=== PATIENT | male | born 1935 | race Caucasian/White ===

== ENCOUNTER 2017-06-23 18:07 | Emergency (ER) | payer MEDICARE, BC ==
[2017-06-23 18:18] VITALS: BP 174/76
[2017-06-23] MEDS ORDERED: Amoxicillin/Clavulanate TAB* 875 MG PO ONE (18:47)
--- NOTE | 2017-06-24 18:13 | UC ---
Throat Pain/Nasal Red HPI - HPI Summary HPI Summary: THREE DAYS OF COUGH, SINUS CONGESTION AND LARYNGITIS. - History of Current Complaint Chief Complaint: UCGeneralIllness Stated Complaint: LARYNGITIS/CONGESTION Time Seen by Provider: 06/23/17 18:13 Hx Obtained From: Patient Onset/Duration: Gradual Onset, Lasting Days, Still Present Severity: Moderate Pain Intensity: 0 Pain Scale Used: 0-10 Numeric Cough: Nonproductive Associated Signs & Symptoms: Positive: Hoarseness - Allergies/Home Medications Allergies/Adverse Reactions: Allergies Allergy/AdvReac Type Severity Reaction Status Date / Time Propafenone [From Rythmol] AdvReac Dizziness Verified 06/23/17 18:19 dandelion resolved Allergy Eyes Uncoded 06/23/17 18:19 Itchy/Swollen/Red/Watery PMH/Surg Hx/FS Hx/Imm Hx Previously Healthy: Yes - Surgical History Surgical History: Yes Surgery Procedure, Year, and Place: 2012-Right MENISCUS REPAIR-2012 [place]. 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 kidney stone removal - Family History Known Family History: Positive: Cardiac Disease, Hypertension - Social History Occupation: Retired Lives: With Family Alcohol Use: Daily Alcohol Amount: 2 Martini drinks daily Substance Use Type: None Smoking Status (MU): Former Smoker When Did the Patient Quit Smoking/Using Tobacco: 20+ years ago - Immunization History Most Recent Tetanus Shot: UNKNOWN Review of Systems Constitutional: Negative Skin: Negative Eyes: Negative ENT: Sore Throat, Sinus Congestion Respiratory: Cough Cardiovascular: Negative Gastrointestinal: Negative Genitourinary: Negative Motor: Negative Neurovascular: Negative Musculoskeletal: Negative Neurological: Negative Psychological: Negative All Other Systems Reviewed And Are Negative: Yes Physical Exam Triage Information Reviewed: Yes Appearance: Well-Appearing, No Pain Distress, Well-Nourished Vital Signs: Initial Vital Signs Temp 99.8 F 06/23/17 18:10 Pulse 80 06/23/17 18:10 Resp 20 06/23/17 18:10 BP 174/76 06/23/17 18:10 Pulse Ox 94 06/23/17 18:10 Vital Signs Reviewed: Yes Eye Exam: Normal ENT: Positive: Pharyngeal erythema, TM dull Dental Exam: Normal Neck: Positive: Supple, Nontender, No Lymphadenopathy Respiratory Exam: Other - COUGH Respiratory: Positive: Chest non-tender, Lungs clear, Normal breath sounds, No respiratory distress Cardiovascular Exam: Normal Cardiovascular: Positive: RRR, Brisk Capillary Refill Abdominal Exam: Normal Musculoskeletal Exam: Normal Neurological Exam: Normal Psychological Exam: Normal Skin Exam: Normal Throat Pain/Nasal Course/Dx - Differential Dx/Diagnosis Differential Diagnosis/HQI/PQRI: Laryngitis, Pharyngitis, Sinusitis, URI Provider Diagnoses: SINUSITIS; LARYNGITIS Discharge - Discharge Plan Condition: Stable Disposition: HOME Prescriptions: Amoxicillin/Clavulanate TAB* [Augmentin TAB 875*] 875 mg PO BID #20 tab Benzonatate CAP* [Tessalon 100 MG CAP*] 100 mg PO TID PRN #15 cap PRN Reason: Cough Patient Education Materials: Sinusitis (ED), Laryngitis (ED), Acute Cough (ED) Referrals: Zohreh Maharaj MD [Primary Care Provider] -
== END 2017-06-23 18:58 | disposition home or self-care (01) ==
LOC: UCCORT 18:07
DX: J32.9 Chronic sinusitis, unspecified (principal); J04.0 Acute laryngitis; Z87.891 Personal history of nicotine dependence; Z88.8 Allergy status to other drugs, medicaments and biological substances; Z85.46 Personal history of malignant neoplasm of prostate; Z85.51 Personal history of malignant neoplasm of bladder
CPT/HCPCS: 99211; A9270-GY; G0463

== ENCOUNTER 2018-01-09 00:28 | Observation (INO) | payer MEDICARE, BC ==
[2018-01-09] MEDS ORDERED: Morphine INJ* 4 MG/ML 1 ML CARPUJECT IV ONE (01:25)
[2018-01-09] MEDS ORDERED: Ondansetron INJ* 2 MG/ML VIAL IV ONE (01:25)
[2018-01-09] MEDS ORDERED: Morphine INJ* 2 MG/ML 1 ML CARPUJECT ONE (01:45)
[2018-01-09] MEDS ORDERED: Morphine INJ* 2 MG/ML 1 ML CARPUJECT IV ONE (01:48)
[2018-01-09 01:53] LABS: ABS Basophils 0 10^3/ul (0-0.2); ABS Eosinophils 0.1 10^3/ul (0-0.6); ABS Lymphocytes 0.4 10^3/ul (1.0-4.8); ABS Monocytes 0.8 10^3/ul (0-0.8); ABS Nucleated RBC 0 10^3/ul; Eosinophil % 1.4 % (0-6); Hematocrit 46 % (42-52); Hemoglobin 15.1 g/dl (14.0-18.0); Lymphocyte % 3.9 % (25-47); Mean Corpuscular HGB Conc 33 g/dl (31-36); Mean Corpuscular Hemoglobin 32 pg (27-31); Mean Corpuscular Volume 96 fL (80-94); Mean Platelet Volume 10 um3 (7.4-10.4); Nucleated Red Blood Cells % 0; Platelet Count 162 10^3/ul (150-450); Red Blood Count 4.74 10^6/ul (4.0-5.4); Red Cell Distribution Width 14 % (10.5-15); White Blood Count 9.3 10^3/ul (3.5-10.8)
[2018-01-09] MEDS ORDERED: Aspirin Low Dose CHEW TAB* 81 MG PO ONE (01:59)
[2018-01-09 02:04] LABS: EGFR Non-African American 78.8 (>60)
[2018-01-09 02:05] LABS: INR 2.4 (0.77-1.02)
[2018-01-09] MEDS ORDERED: Docusate CAP* 100 MG PO PRN (03:57)
[2018-01-09] MEDS ORDERED: Ondansetron INJ* 2 MG/ML VIAL IV PRN (03:57)
[2018-01-09] MEDS ORDERED: Senna TAB PO PRN (03:57)
[2018-01-09] MEDS ORDERED: Al Hydrox/Mg Hydrox/Simet LIQ* 30 ML UDC PO PRN (03:57)
[2018-01-09] MEDS ORDERED: Acetaminophen TAB* 325 MG PO PRN (03:57)
[2018-01-09] MEDS ORDERED: Morphine INJ* 2 MG/ML 1 ML CARPUJECT IV PRN (03:57)
--- NOTE | 2018-01-09 08:06 | RAD ---
HISTORY: Chest pain COMPARISONS: June 13, 2017 VIEWS: 1: frontal portable view of the chest at 2:00 AM FINDINGS: LINES AND TUBES: None. CARDIOMEDIASTINAL SILHOUETTE: The cardiac silhouette is enlarged. The cardiomediastinal silhouette is otherwise normal for portable technique. PLEURA: The costophrenic angles are sharp. No pleural abnormalities are noted. LUNG PARENCHYMA: The lungs are clear. ABDOMEN: The upper abdomen is clear. There is no subphrenic gas. BONES AND SOFT TISSUES: No bone or soft tissue abnormalities are noted. IMPRESSION: CARDIOMEGALY.
[2018-01-09] MEDS ORDERED: Timolol 0.25% OPHTH.SOLN* BTL BOTH EYES SCH (09:00)
[2018-01-09] MEDS ORDERED: Aspirin EC Low Dose* 81 MG TAB.EC PO SCH (09:00)
[2018-01-09] MEDS ORDERED: Lisinopril TAB* 10 MG PO SCH (09:00)
[2018-01-09] MEDS ORDERED: Potassium Chlor TAB* 20 MEQ TAB.ER PO SCH (09:00)
[2018-01-09] MEDS ORDERED: Furosemide TAB* 20 MG PO SCH (09:00)
[2018-01-09] MEDS ORDERED: Regadenoson* 0.4 MG/5 ML SYRINGE ONE (12:23)
--- NOTE | 2018-01-09 13:44 | RAD ---
Edited for charges. INDICATION: Chest pain COMPARISON: None TECHNIQUE: SPECT imaging was performed. Rest images were acquired following the intravenous injection of 10 millicuries of technetium 99m tetrofosmin at 1057 hours. At 1227 hours stress images were acquired following the intravenous administration of 25.38 millicuries of technetium 99m tetrofosmin. The patient received intravenous Lexiscan prior to the stress image acquisition. CT attenuation correction was not possible as the patient could not elevate arms above his head. FINDINGS: There are no defects of the stress-induced or fixed nature. The cardiac chamber size is normal. There are no wall motion abnormalities. The ejection fraction is calculated at 68% during stress. IMPRESSION: No scintigraphic evidence of ischemia or infarction. ASSESSMENT: HIGH-RISK, INTERMEDIATE-RISK, OR LOW-RISK Based on imaging criteria from ACC/AHA 2002 Guideline Update for the Management of Patients With Chronic Stable Angina Table 23. Noninvasive Risk Stratification. MTDD
--- NOTE | 2018-01-09 14:16 | HP ---
CC: Zohrhe Maharaj MD. HISTORY AND PHYSICAL: DATE OF ADMISSION: 01/09/18 TIME OF EVALUATION: 0400 PRIMARY CARE PHYSICIAN: Zohreh Maharaj MD. CHIEF COMPLAINT: Chest pain. HISTORY OF PRESENT ILLNESS: This is an 82-year-old male with past medical history of atrial fibrilla tion, on Coumadin; hypertension, who presents to the emergency room with substernal epigastric pleuri tic pain. The patient states the symptoms began yesterday morning and has not unproved. He states 2 days prior to this, he has had congestion, postnasal drip with a mild cough. No associated shortnes s of breath. No nausea, no diaphoresis. He has an O2 sat at home, and it has been greater than 90. He has had COPD, but he has no inhalers and no inhaler use. He denies any change in his diet. No i ncrease in burping. He was shoveling a few days ago, when the snow storm hit. Otherwise, no exertio nal activity. No recent weight changes, no fevers, no recent changes in his medications. The gee t states he had a stress test here every year, but was not able to find that documentation other than one from 2008. Otherwise, remainder of review of systems negative. In the emergency room, the ashley ent had labs, imaging. He was given 4 mg of morphine, Zofran, aspirin, and was referred to the [facility] for further evaluation. PAST MEDICAL HISTORY: 1. Atrial fibrillation, on anticoagulation. 2. Hypertension. 3. COPD, on room air. 4. History of bladder cancer, status post surgery in 2008. 5. Prostate cancer, status post surgery in 1998. 6. History of nephrolithiasis. 7. History of right knee surgery. MEDICATIONS: 1. Multivitamin p.o. daily. 2. Simvastatin 20 mg p.o. daily. 3. Timolol maleate 0.25% one drop to each eye b.i.d. for glaucoma. 4. Pilocarpine 0.5% one drop in both eyes once per month. 5. Lisinopril 20 mg p.o. daily. 6. Warfarin 2.5 mg Monday, , and Monday; 1.25 mg on Monday, Monday, Monday, Monday. 7. Potassium chloride 20 mEq p.o. daily. 8. Lasix 20 mg p.o. daily. ALLERGIES: PROPAFENONE, dizziness; DANDELION. FAMILY HISTORY: Mother at age 73 from old age. Father at age 97 from emphysema. SOCIAL HISTORY: The patient states he recently relocated from [place]. He lives at home with his wi fe who is his healthcare proxy. He quit smoking 25 years ago, at that time he smoked 1 to 2 packs pe r day for 25 years. He has 1 martini vodka in the evening time. Code status discussed, he is not wick re, will remain full code until he follows up with his primary to discuss further. REVIEW OF SYSTEMS: A 14-point review of systems as mentioned in the HPI, otherwise negative. PHYSICAL EXAMINATION GENERAL: No acute distress, resting comfortably. VITAL SIGNS: Temp 98.3, pulse rate 87, respiratory rate 14, oxygen saturation 93% on 2 L, blood pres sure 115/60. HEENT: Head: Normocephalic. Pupils are equal and reactive. Anicteric. Oropharynx, mucous membrane s moist. NECK: Supple. No lymphadenopathy. RESPIRATORY: Diminished breath sounds. No wheezing, rhonchi, or rales. CARDIAC: Irregularly irregular rate and rhythm. ABDOMEN: Soft, nontender, nondistended. EXTREMITIES: The patient with multiple lower extremity varicosities. Distant pulses. No edema. NEUROLOGIC: Alert and oriented x3. No focal neurologic deficits. DIAGNOSTIC STUDIES/LAB DATA: White count 9.3, hemoglobin 15.1, hematocrit 46, platelets 162. INR 2 .4. Sodium 134, potassium 4.2, chloride 99, bicarb 29, BUN 19, creatinine 0.92, glucose 151. Tropon in 0.01. Radiographic data: Chest x-ray, no acute findings on wet read. EKG showed atrial fibrillation with a rate of 98. ASSESSMENT AND PLAN: This is an 82-year-old male with past medical history of atrial fibrillation, o n Coumadin; hypertension, who presents to the emergency room with pleuritic pain. 1. Pleuritic pain. Assessment: The patient's initial workup is unremarkable. It is in the setting of congestion, could be costochondritis, or related to a viral syndrome. He does have risk factors. It was unreasonable to rule him out for acute coronary syndrome. Plan: We will trend his troponin . Check a lipid panel. Place him on a baby aspirin. Order a nuclear stress test. 2. Chronic medical problems: Atrial fibrillation. Assessment: He is anticoagulated. He is not on any medications for rate control. We would recommend starting him on a beta-matilda after his stres s test. 3. Hypertension. Continue his home regimen. 4. FEN. We will keep the patient n.p.o. 5. DVT prophylaxis. The patient is moderate risk. He is on Coumadin. 6. Code status, full code. Recommend followup with his primary care physician regarding this. PATIENT TIME: Greater than 45 minutes spent doing the history and physical, more than half time spen t in direct patient contact. [id number]/CPS #: [id number]
--- NOTE | 2018-01-09 15:34 | RAD ---
HISTORY: Lower extremity edema COMPARISONS: None relevant TECHNIQUE: Multiple transverse and longitudinal ultrasound images were obtained of the bilateral lower extremities from the level of the common femoral vein inferiorly through to the infrapopliteal veins using grayscale, color Doppler, and spectral Doppler imaging with and without compression and with augmentation. FINDINGS: VEINS: The venous system of the bilateral lower extremities is compressible throughout its course, with normal flow on color Doppler imaging and normal response to augmentation on spectral Doppler imaging. SOFT TISSUES: Unremarkable. OTHER FINDINGS: None. IMPRESSION: NO RIGHT LOWER EXTREMITY DEEP VEIN THROMBOSIS. NO LEFT LOWER EXTREMITY DEEP VEIN THROMBOSIS
[2018-01-09 16:32] VITALS: BP 100/54
[2018-01-09] MEDS ORDERED: Warfarin TAB(*) 2.5 MG PO SCH (17:00)
[2018-01-09] MEDS ORDERED: Prenatal Vitamin TAB PO SCH (18:00)
[2018-01-10] MEDS ORDERED: Warfarin TAB(*) 2.5 MG PO SCH (17:00)
--- NOTE | 2018-01-10 20:31 | DS ---
CC: Ruthy Payan MD * DISCHARGE SUMMARY: DATE OF ADMISSION: 01/09/18 DATE OF DISCHARGE: 01/09/18 ADMITTING PROVIDER: Kaci Saunders MD ATTENDING PHYSICIAN: Alvaro Cornejo MD PRIMARY CARE PROVIDER: Zohreh Maharaj MD CHIEF COMPLAINT: Pleuritic sharp chest pain. PRINCIPAL DIAGNOSIS: Acute coronary artery syndrome ruled out; pleuritic chest pain likely secondary to viral illness. HISTORY OF PRESENT ILLNESS AND HOSPITAL COURSE: Emanuel Galdamez is an 82- year- old male with past medical history of atrial fibrillation, on Coumadin; hypertension; COPD, on 2 L of oxygen at night; bladder cancer, status post surgery in 2008; prostate cancer, status post surgery in 1998; history of nephrolithiasis who presented with upper substernal pleuritic pain radiating to his upper back. Two days prior to admission, he had some congestion, postnasal drip, mild cough, fevers and chills. No associated shortness of breath. His O2 saturation has been greater than 98% at home when he measured it. Despite his chronic hypoxic nocturnal respiratory failure, he is on no inhalers. He was shoveling snow a few days prior to admission, otherwise no exertional activity, weight changes. He was admitted for ACS rule out. His initial chest x-ray showed no acute findings. His initial troponin was 0.01. It increased to 0.04, then 0.05, and down to 0.04 again. He had a nuclear stress test, which showed no evidence of ischemia or infarction. He had complaints of chronic right lower extremity edema and a duplex ultrasound bilaterally did not show any evidence of DVT. His physical exam was more consistent with varicose veins, worse on the right leg. Of note, his INR was in the therapeutic range, 2.4. He had a LDL of 74, HDL of 50, BNP of 163. ACS having been ruled out and likely this is pleuritic pain secondary to his upper respiratory infections in recent days and possible viral insult. The patient was considered stable for discharge with further followup with Dr. Maharaj. DISCHARGE MEDICATIONS: Include: 1. Acetaminophen 650 mg p.o. q.4 hours (new). 2. Docusate 100 mg p.o. b.i.d. (new). 3. Lasix 20 mg p.o. daily. 4. Lisinopril 20 mg p.o. daily. 5. Multivitamin 1 tab p.o. daily. 6. Pilocarpine 0.5% ophthalmic solution 1 drop monthly. 9. Potassium chloride tablet 20 mEq p.o. daily. 10. Senna tab 1 tab p.o. b.i.d. p.r.n. (new). 11. Simvastatin 20 mg p.o. q.a.m. 12. Timolol 0.25% ophthalmic solution 1 drop both eyes b.i.d. 13. Tramadol 25 mg p.o. q.6 hours p.r.n. (new). 14. Warfarin 1.25 mg Monday, Monday, Monday, Monday and 2.5 mg Monday, , Monday. DISCHARGE DIET: Heart healthy. ACTIVITY LEVEL: No restrictions. FOLLOWUP: Please follow up with Dr. Zohreh Maharaj within 5 days of discharge. TIME SPENT: On discharge 35 minutes. [id number]/CPS #: [id number] MTDD
== END 2018-01-09 17:50 | disposition home or self-care (01) ==
LOC: ED 00:28 → MEDTELE 03:57
PROVIDERS: ADMIT Pediatrics; ATTEND Internal Medicine
DX: R07.89 Other chest pain (principal); B34.9 Viral infection, unspecified; Z86.79 Personal history of other diseases of the circulatory system; Z79.01 Long term (current) use of anticoagulants; Z87.09 Personal history of other diseases of the respiratory system; Z85.51 Personal history of malignant neoplasm of bladder; Z85.46 Personal history of malignant neoplasm of prostate; Z87.442 Personal history of urinary calculi; Z98.890 Other specified postprocedural states; I51.7 Cardiomegaly
CPT/HCPCS: 36415; 71045; 78452; 80053; 80061; 83735; 83880; 84484; 85025; 85610; 85730; 93005; 93017; 93970; 96374; 96375; 96376; 99284; A9270-GY; A9502; G0378; J2270; J2405; J2785

== ENCOUNTER 2018-06-07 11:16 | Emergency (ER) | payer MEDICARE, BC ==
[2018-06-07 11:57] VITALS: BP 139/67
--- NOTE | 2018-06-07 12:21 | ED ---
Lower Extremity - History of Current Complaint Chief Complaint: UCLowerExtremity Stated Complaint: RIGHT LEG COMPLAINT Time Seen by Provider: 06/07/18 12:11 Hx Obtained From: Patient Mechanism Of Injury: Unknown Onset/Duration: Days Severity Initially: Mild Severity Currently: Mild Pain Intensity: 0 Associated Signs And Symptoms: Positive: Negative Aggravating Factor(s): Nothing Alleviating Factor(s): Nothing - Allergies/Home Medications Allergies/Adverse Reactions: Allergies Allergy/AdvReac Type Severity Reaction Status Date / Time propafenone Allergy Dizziness Verified 01/09/18 03:18 dandelion resolved Allergy Eyes Uncoded 06/23/17 18:19 Itchy/Swollen/Red/Watery Home Medications: Home Medications Oxygen Machine At Night No. 2 06/07/18 [History] Simvastatin 20 mg PO QAM 06/07/18 [History Confirmed 06/07/18] PMH/Surg Hx/FS Hx/Imm Hx Endocrine/Hematology History: Denies: Hx Diabetes Cardiovascular History: Reports: Hx Angina, Hx Coronary Artery Disease - HIGH CHOLESTEROL, Hx Peripheral Vascular Disease - MILD PER ALBA NOTE Denies: Other Cardiovascular Problems/Disorders Comment Only: Hx Hypertension - CONTROLED BY MEDS Respiratory History: Reports: Hx Chronic Obstructive Pulmonary Disease (COPD) Denies: Hx Asthma History: Reports: Hx Kidney Stones, Other Problems/Disorders - DX BLADDER CA 2008 Musculoskeletal History: Reports: Hx Arthritis - RIGHT KNEE Sensory History: Reports: Hx Cataracts, Hx Contacts or Glasses - READING, Hx Glaucoma - BILATERAL, Hx Hearing Aid - LEFT EAR, Hx Hearing Problem Opthamlomology History: Reports: Hx Cataracts, Hx Contacts or Glasses - READING , Hx Glaucoma - BILATERAL - Cancer History Cancer Type, Location and Year: BLADDER 1998. PROSTATE. [place] - Surgical History Surgery Procedure, Year, and Place: 2012-Right MENISCUS REPAIR-2012 [place]. 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 kidney stone removal Hx Anesthesia Reactions: No Infectious Disease History: No Infectious Disease History: Reports: Hx Shingles Denies: Traveled Outside the [place] in Last 30 Days - Family History Known Family History: Positive: Cardiac Disease, Hypertension - Social History Alcohol Use: Daily Alcohol Amount: 1-1 1/8 Martini drinks daily Substance Use Type: Reports: None Smoking Status (MU): Former Smoker Review of Systems Constitutional: Negative Eyes: Negative ENT: Negative Cardiovascular: Other - dyspnea with exertion Positive: Shortness Of Breath - unchanged Gastrointestinal: Negative Genitourinary: Negative Skin: Other - small laceration right lower leg Neurological: Negative Psychological: Normal All Other Systems Reviewed And Are Negative: Yes Physical Exam Triage Information Reviewed: Yes Vital Signs On Initial Exam: Initial Vitals Temp Pulse Resp BP Pulse Ox 36.4 C 56 18 139/67 96 06/07/18 11:45 06/07/18 11:45 06/07/18 11:45 06/07/18 11:45 06/07/18 11:45 Vital Signs Reviewed: Yes Appearance: Positive: Well-Appearing Skin: Positive: Warm - small laceration right posterior leg, Other - small laceration of the right posterior calf without surrounding erythema or pain Head/Face: Positive: Normal Head/Face Inspection Eyes: Positive: Normal ENT: Positive: Normal ENT inspection Neck: Positive: Supple Respiratory/Lung Sounds: Positive: Clear to Auscultation Cardiovascular: Positive: Other - irregularly irregular Abdomen Description: Positive: Nontender Bowel Sounds: Positive: Present Musculoskeletal: Positive: Edema Left - bilateral varicosities noted, Edema Right Diagnostics - Vital Signs Vital Signs Temp Pulse Resp BP Pulse Ox 06/07/18 11:45 36.4 C 56 18 139/67 96 - Laboratory Lab Statement: Any lab studies that have been ordered have been reviewed, and results considered in the medical decision making process. Lower Extremity Course/Dx - Diagnoses Provider Diagnoses: Laceration of leg Discharge - Sign-Out/Discharge Documenting (check all that apply): Patient Departure - Discharge Plan Condition: Good Disposition: HOME Patient Education Materials: Laceration (ED), Chronic Wound Care (ED) Referrals: Zohreh Mahaarj MD [Primary Care Provider] - - Billing Disposition and Condition Condition: GOOD Disposition: Home
== END 2018-06-07 12:39 | disposition home or self-care (01) ==
LOC: UCCORT 11:16
DX: S81.811A Laceration without foreign body, right lower leg, initial encounter (principal); X58.XXXA Exposure to other specified factors, initial encounter; Y93.9 Activity, unspecified; Y92.9 Unspecified place or not applicable; Z88.8 Allergy status to other drugs, medicaments and biological substances; E78.00 Pure hypercholesterolemia, unspecified; Z87.891 Personal history of nicotine dependence
CPT/HCPCS: 99211; G0463

== ENCOUNTER 2018-07-11 07:34 | Observation (INO) | payer MEDICARE, BC ==
[2018-07-11] MEDS ORDERED: ceFAZolin 2 GM PREMIX (*) 2 GM/50 ML BAG IVPB ONE (08:00)
[2018-07-11] MEDS ORDERED: Lidocaine 1%* 5 ML VIAL ONE (08:34)
[2018-07-11] MEDS ORDERED: Iohexol 300* (CONTRAST) 10 ML SDV ONE (08:34)
[2018-07-11] MEDS ORDERED: fentaNYL* 50 MCG/ML 2 ML VIAL (100 MCG VIAL) ONE (08:34)
[2018-07-11] MEDS ORDERED: Midazolam* 1 MG/ML 5 ML VIAL (5 MG) ONE ×2 (08:34→10:31)
[2018-07-11] MEDS ORDERED: Diazepam TAB(*) 5 MG ONE (08:40)
[2018-07-11] MEDS ORDERED: Furosemide IV* 10 MG/ML VIAL (40 MG) ONE (10:55)
[2018-07-11] MEDS ORDERED: oxyCODONE/Acetamin 5/325 MG* TAB PO PRN (11:37)
[2018-07-11] MEDS ORDERED: Acetaminophen TAB* 325 MG PO PRN (11:37)
[2018-07-11] MEDS: Potassium Chlor TAB* 20 MEQ TAB.ER PO SCH (12:34)
[2018-07-11] MEDS: Furosemide TAB* 20 MG PO SCH (12:34)
--- NOTE | 2018-07-11 15:01 | RAD ---
INDICATION: Device implant COMPARISON: January 09, 2018 TECHNIQUE: An AP portable view obtained at 1420 hours is submitted. FINDINGS: Bones/Soft Tissues: There are no acute bony findings. There is recent left-sided cardiac pacemaker placement Cardiomediastinal: The cardiomediastinal silhouette is normal. Lungs: There are no infiltrates. There is no pneumothorax. Pleura: There are no pleural effusions. Other: None IMPRESSION: LEFT CARDIAC PACEMAKER PLACEMENT. NO PNEUMOTHORAX.
[2018-07-11] MEDS: ceFAZolin 1 GM VIAL(*) 1 GM in NS 0.9% 50 ML* 50 ML IVPB SCH ×2 (16:25→23:50)
[2018-07-11] MEDS: Timolol 0.25% OPHTH.SOLN* BTL BOTH EYES SCH (20:45)
[2018-07-12 06:42] LABS: EGFR Non-African American 83.8 (>60)
[2018-07-12] MEDS: ceFAZolin 1 GM VIAL(*) 1 GM in NS 0.9% 50 ML* 50 ML IVPB SCH (07:44)
[2018-07-12] MEDS ORDERED: Atorvastatin* 10 MG TAB PO SCH (09:00)
[2018-07-12] MEDS ORDERED: Lisinopril TAB* 10 MG PO SCH (09:00)
[2018-07-12] MEDS: Timolol 0.25% OPHTH.SOLN* BTL BOTH EYES SCH (09:21)
[2018-07-12] MEDS: Furosemide TAB* 20 MG PO SCH (09:22)
[2018-07-12] MEDS: Potassium Chlor TAB* 20 MEQ TAB.ER PO SCH (09:22)
--- NOTE | 2018-07-12 10:28 | RAD ---
INDICATION: Device implant COMPARISON: July 11, 2018 TECHNIQUE: PA and lateral dual-energy views were obtained. FINDINGS: Bones/Soft Tissues: There are no acute bony findings. There is recent left-sided cardiac pacemaker placement. The appearance unchanged Cardiomediastinal: The cardiac silhouette is mildly prominent. Lungs: There are no infiltrates. There is no pneumothorax. Pleura: There are no pleural effusions. Other: None IMPRESSION: RECENT PLACEMENT OF LEFT-SIDED CARDIAC PACEMAKER. LUNGS CLEAR
[2018-07-12 12:08] VITALS: BP 156/71
--- NOTE | 2018-07-12 14:00 | OP ---
CC: Dr. Zohreh Maharaj; Dr. Olivier Mcdonnell* OPERATIVE REPORT: DATE OF OPERATION: 07/11/18 - Inpatient, room 434-01 DATE OF : 35 SURGEON: Ruthy Payan MD PRE-OP DIAGNOSIS: Atrial fibrillation with bradycardia and PVCs. POST-OP DIAGNOSIS: Atrial fibrillation with bradycardia and PVCs. OPERATIVE PROCEDURE: Single-chamber pacemaker implantation. ESTIMATED BLOOD LOSS: Less than 10 cc. COMPLICATIONS: None. DESCRIPTION OF PROCEDURE: The indications, risks, and benefits of the procedure were discussed with the patient in the presence of his and they were amenable to proceeding. The patient had held his Coumadin for 5 days prior to the procedure and held his Lasix the morning of the procedure, but taken other meds. The patient is right-handed and the left subclavian fossa was prepped and draped in the usual sterile fashion. Throughout the procedure, the patient received a total of 7 mg of Versed and 50 mcg of fentanyl. The patient received 20 cc of 1% lidocaine for local anesthesia. Following the timeout, 10 cc of radiopaque dye was injected into the left upper extremity outlining the left axillary and left subclavian vein. Following the local anesthesia, using a 10 blade knife, a 2.5 cm incision was made in the left subclavian fossa, and using Bovie and blunt dissection, it was extended to the level of the pectoralis muscle. Additional lidocaine was infused inferiorly and medially, and using blunt dissection, a small pocket was fashioned. Using a modified Seldinger technique, the left subclavian vein was cannulated and a guidewire inserted. Using an introducer technique, the right ventricular lead was guided into the right ventricular apex and actively fixed in place. The patient had had significant bleeding at the site of the incision, but not with the pocket. Direct pressure was placed as well and the lead was sutured to the pocket using 0 silk suture and followed by irrigation. Bleeding had stopped , but I did take a third incision to wider with tissue to wrap around the lead as it came out of the vein to minimize future bleeding. The pocket was then again copiously irrigated. Pacing and sensing thresholds again checked. The lead was attached to the device and the device was placed in the pocket. The incision was closed with 2 layers of resorbable followed by carmelo and an external dressing. FINDINGS: The system is an MRI compatible ST. Bo system. The RV lead is a [employer]onic model [id number], serial #[id number]. R waves were sensed at 7.1 millivolts with a ventricular lead impedance of 685 ohms, and the ventricular pacing threshold of 0.5 volts at 0.4 milliseconds. The generator is the [employer] model [id number], serial #[id number]. Leaving the Transit Bus Operator, he was programmed in VVI mode at the rate of 60 beats a minute. The patient had a transient drop in oxygen saturation, which responded to nasal cannula and repositioning of the airway. He was hypertensive on arrival to the pacer lab with some improvement with anesthesia, but during the case, received 10 mg of Lasix for diuresis for a combination of back bleeding and hypertension. There are otherwise no complications and on transfer to the floor, the patient' s systolic blood pressure is in the 130s, oxygen saturation is approximately 94 % on 2 L nasal cannula. [id number]/[facility] #: [id number] [facility]
--- NOTE | 2018-07-12 21:24 | DS ---
CC: Dr. Zohreh Maharaj* DISCHARGE SUMMARY: DATE OF ADMISSION: 07/11/2018. DATE OF DISCHARGE: 07/12/2018. HISTORY OF PRESENT ILLNESS AND HOSPITAL COURSE: Mr. Galdamez is an 83-year- old gentleman with longstanding chronic atrial fibrillation. Recently, he was noted to have frequent PVCs, 26% of total and ventricular bigeminy. He also had evidence of bradycardia with rate as well as 36 beats a minute with atrial fibrillation. The decision was made to implant a single chamber pacemaker in order to add additional rate lowering agents, beta-blockers for his PVCs. The patient underwent single chamber pacemaker implantation yesterday 07/11/[address] MRI compatible [employer] system. His blood pressure was high on arrival with Lasix held but responded well to resumption of Lasix. Overnight, the patient felt well. He feels his breathing has improved since implantation of the device (although it should be noted he received both his usual oral 20 mg of Lasix and 10 mg of Lasix IV push yesterday). It is possible that extra diuretics lead to improved breathing. The patient denies any pain, shortness of breath, orthopnea, PND, or dizziness. PAST MEDICAL HISTORY: The patient has a past medical history of: 1. Chronic atrial fibrillation. 2. Hypertension. 3. Patent foramen ovale. 4. Thoracic aneurysm. 5. COPD. 6. Diminished diffusion capacity. 7. Prostate disease (Husseini). 8. Bladder lesions. 9. Lung nodule. SOCIAL HISTORY: The patient is , lives with his supportive . Stopped smoking in 1988. Drinks a bit of vodka daily and caffeine daily. He is active, exercising regularly. FAMILY HISTORY: Significant for cancer. Three siblings from cancer. His mother of pancreatic cancer. His father at age 78 related to a vein closing up, history unclear. PHYSICAL EXAMINATION: On the day of discharge, the patient a fit appearing elderly gentleman, walking around the floors, in no acute distress. Incision in the left subclavian fossa is well healed and no evidence of active bleeding or infection and no hematoma or ecchymosis in the pocket. Breath sounds were clear in all flowers. Coronary: S1, S2, regular. LABORATORY DATA: Sodium 141, potassium 3.9, chloride 103, bicarb 33, BUN 20, creatinine 0.87, glucose 108. Monitor shows atrial fibrillation, intermittent ventricular pacing and PVCs. Chest x-ray yesterday and today showed good lead placements and no pneumothorax and no pulmonary infiltrates. Device interrogation today confirmed he has a [employer] MRI compatible system. The ventricle lead impedance is 550 ohms, R waves are sensed at 9.6 millivolts with ventricular pacing threshold of 0.5 volts at 0.4 milliseconds. MEDICATIONS AT THE TIME OF DISCHARGE: Include new addition of Keflex 500 mg t.i.d. for 4 days and he is to continue his home medications of: 1. Lipitor 10 mg a day. 2. Lasix 20 mg a day. 3. Prinivil 20 mg a day. 4. Pilocarpine ophthalmic drops. 5. Potassium 20 mEq a day. 6. Timolol ophthalmic drops. We will plan on adding metoprolol with his wound check next week. He is resuming his Coumadin as well. The patient was provided with oral and written instructions for care of his device and we will see him in 1 week's time for wound check and he knows to call pLatisharsamir [id number]/[facility] #: [id number] PEDRO
[2018-07-28] MEDS ORDERED: Pilocarpine 1% OPTH.SOL* 15 ML BTL BOTH EYES SCH (12:00)
== END 2018-07-12 12:30 | disposition home or self-care (01) ==
LOC: CHICATH 07:34 → MEDTELE 11:37
PROVIDERS: ADMIT Specialist; ATTEND Specialist
DX: I48.2 Chronic atrial fibrillation (principal); I49.3 Ventricular premature depolarization; I10 Essential (primary) hypertension; I71.4 Abdominal aortic aneurysm, without rupture; Q21.1 Atrial septal defect; J44.9 Chronic obstructive pulmonary disease, unspecified; N42.9 Disorder of prostate, unspecified; M26.609 Unspecified temporomandibular joint disorder, unspecified side; I83.90 Asymptomatic varicose veins of unspecified lower extremity; Z85.46 Personal history of malignant neoplasm of prostate; N20.0 Calculus of kidney
CPT/HCPCS: 33207; 36415; 71045; 71046; 80048; 93005; 96365; 99156; 99157; A9270-GY; C1786; C1898; G0378; J0690; J1940; J2250; J3010

== ENCOUNTER 2018-11-16 08:06 | Emergency (ER) | payer MEDICARE, BC ==
[2018-11-16 08:25] VITALS: BP 155/77
--- NOTE | 2018-11-16 08:34 | UC ---
Throat Pain/Nasal Red HPI - HPI Summary HPI Summary: sore throat x 1 day nasal congestion , pnd no fever, no chills, no cough - History of Current Complaint Chief Complaint: UCGeneralIllness Stated Complaint: SORE THROAT Time Seen by Provider: 11/16/18 08:20 Hx Obtained From: Patient Onset/Duration: Gradual Onset, Lasting Days - 1, Still Present Severity: Moderate Pain Intensity: 2 Cough: None Associated Signs & Symptoms: Positive: Nasal Discharge. Negative: Dysphagia, FB Sensation, Drooling, Wheezing, Hoarseness, Sinus Discomfort, Fever, Vomiting , Rash - Allergies/Home Medications Allergies/Adverse Reactions: Allergies Allergy/AdvReac Type Severity Reaction Status Date / Time propafenone Allergy Dizziness Verified 11/16/18 08:19 PMH/Surg Hx/FS Hx/Imm Hx - Additional Past Medical History Additional PMH: Dyslipidemia, Fluid Retention, Glaucoma Cardiovascular History: Atrial Fibrillation Respiratory History: COPD - Surgical History Surgical History: Yes Surgery Procedure, Year, and Place: 2012-Right MENISCUS REPAIR-2012 [place]. 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 kidney stone removal - Family History Known Family History: Positive: Cardiac Disease, Hypertension - Social History Alcohol Use: Daily Alcohol Amount: Martini Substance Use Type: None Smoking Status (MU): Former Smoker Length of Time of Smoking/Using Tobacco: 1-2 PPD x 25 Years Have You Smoked in the Last Year: No When Did the Patient Quit Smoking/Using Tobacco: 1984 - Immunization History Most Recent Tetanus Shot: UNKNOWN Review of Systems All Other Systems Reviewed And Are Negative: Yes Constitutional: Positive: Negative Skin: Positive: Negative Eyes: Positive: Negative ENT: Positive: Sore Throat, Nasal Discharge Respiratory: Positive: Negative Cardiovascular: Positive: Negative Is Patient Immunocompromised?: No Physical Exam Triage Information Reviewed: Yes Appearance: Well-Appearing, No Pain Distress, Well-Nourished Vital Signs: Initial Vital Signs Temp 98.7 F 11/16/18 08:16 Pulse 66 11/16/18 08:16 Resp 18 11/16/18 08:16 BP 155/77 11/16/18 08:16 Pulse Ox 95 11/16/18 08:16 Vital Signs Reviewed: Yes Eye Exam: Normal Eyes: Positive: Conjunctiva Clear ENT: Positive: Normal ENT inspection, Hearing grossly normal, Pharyngeal erythema, Nasal drainage. Negative: Nasal congestion, Tonsillar swelling, Tonsillar exudate Neck: Positive: Supple, Nontender, No Lymphadenopathy Respiratory: Positive: Chest non-tender, Lungs clear, Normal breath sounds Cardiovascular: Positive: No Murmur, Other: - afib normal rate Skin Exam: Normal Throat Pain/Nasal Course/Dx - Differential Dx/Diagnosis Provider Diagnosis: Viral pharyngitis Discharge - Sign-Out/Discharge Documenting (check all that apply): Patient Departure All imaging exams completed and their final reports reviewed: No Studies - Discharge Plan Condition: Stable Disposition: HOME Patient Education Materials: Pharyngitis (ED) Referrals: Zohreh Maharaj MD [Primary Care Provider] - If Needed Additional Instructions: viral sore throat - Billing Disposition and Condition Condition: STABLE Disposition: Home
== END 2018-11-16 08:38 | disposition home or self-care (01) ==
LOC: UCCORT 08:06
DX: J06.9 Acute upper respiratory infection, unspecified (principal); Z77.22 Contact with and (suspected) exposure to environmental tobacco smoke (acute) (chronic)
CPT/HCPCS: 99211; G0463

== ENCOUNTER 2020-02-05 15:37 | Emergency (ER) | payer MEDICARE, BC ==
[2020-02-05 17:37] VITALS: BP 145/67
--- NOTE | 2020-02-05 18:13 | UC ---
Skin Complaint HPI - HPI Summary HPI Summary: Pt presents with c/o skin tear to right dorsal aspect of hand that occurred last evening after he hit his hand against a wall. Pt is on coumadin and states that he had a large "blood blister" that must have opened and drained over night. Pt is aconcerned that he is developing cellulitis as he thinks skin around skin tears is "red' - History of Current Complaint Chief Complaint: UCSkin Time Seen by Provider: 02/05/20 17:38 Stated Complaint: WOUND CHECK Hx Obtained From: Patient Onset/Duration: Sudden Onset, Still Present Skin Exposure Onset/Duration: Hours Ago Timing: Constant Onset Severity: Moderate Current Severity: Mild Pain Intensity: 0 Location: Discrete - right hand dorsal aspect Character: Swelling, Redness Aggravating Factor(s): Nothing Alleviating Factor(s): Nothing Associated Signs & Symptoms: Positive: Bruising Related History: Trauma - mild - Allergy/Home Medications Allergies/Adverse Reactions: Allergies Allergy/AdvReac Type Severity Reaction Status Date / Time propafenone Allergy Dizziness Verified 11/16/18 08:19 Home Medications: Home Medications Multivitamin [Multivitamins] 1 tab PO QPM 06/12/13 [History Confirmed 02/05/20] Timolol 0.25% OPHTH.SOLN* [Timoptic Ophth.soln 0.25%*] 1 drop BOTH EYES BID [History Confirmed 02/05/20] Warfarin TAB(*) [Coumadin TAB(*)] 2 mg PO DAILY 05/16/14 [History Confirmed 10/16] Furosemide TAB* [Lasix TAB*] 2 tab PO DAILY 07/28/15 [History Confirmed 02/05/20 ] Simvastatin 20 mg PO QAM 06/07/18 [History Confirmed 02/05/20] Oxygen 2 % BEDTIME 01/19/19 [History Confirmed 02/05/20] Pilocarpine 4% OPTH.TAE* 1 drop .SEE ORDER MONTHLY 01/19/19 [History Confirmed 02/05/20] lisinopriL [Lisinopril 2.5 MG-] 0.5 tab PO DAILY 02/05/20 [History Confirmed 10/16] PMH/Surg Hx/FS Hx/Imm Hx Previously Healthy: Yes - Surgical History Surgical History: Yes Surgery Procedure, Year, and Place: 2012-Right MENISCUS REPAIR-2012 [place]. 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 kidney stone removal. PACEMAKER INSERTION - Family History Known Family History: Positive: Cardiac Disease, Hypertension - Social History Occupation: Retired Lives: With Family Alcohol Use: Daily Alcohol Amount: cocktail x1 nightly Substance Use Type: None Smoking Status (MU): Former Smoker Length of Time of Smoking/Using Tobacco: 1-2 PPD x 25 Years Have You Smoked in the Last Year: No When Did the Patient Quit Smoking/Using Tobacco: 1984 - Immunization History Most Recent Tetanus Shot: UNKNOWN Review of Systems All Other Systems Reviewed And Are Negative: Yes Constitutional: Positive: Negative Skin: Positive: Bruising, Other - skin tears right hand dorsal aspect Eyes: Positive: Negative ENT: Positive: Negative Respiratory: Positive: Negative Cardiovascular: Positive: Negative Gastrointestinal: Positive: Negative Genitourinary: Positive: Negative Motor: Positive: Negative Neurovascular: Positive: Negative Musculoskeletal: Positive: Edema - mild swelling Neurological/Mental Status: Positive: Negative Psychological: Positive: Negative Is Patient Immunocompromised?: No Physical Exam Triage Information Reviewed: Yes Appearance: Well-Appearing Vital Signs: Initial Vital Signs Temp 96.8 F 02/05/20 17:30 Pulse 62 02/05/20 17:30 Resp 18 02/05/20 17:30 BP 145/67 02/05/20 17:30 Pulse Ox 95 02/05/20 17:30 Vital Signs Reviewed: Yes Eye Exam: Normal ENT Exam: Normal Neck exam: Normal Respiratory Exam: Normal Respiratory: Positive: No respiratory distress Musculoskeletal: Positive: Edema @ - mild swelling Neurological Exam: Normal Psychological Exam: Normal Skin Exam: Other - bruising, skin tears with bleeding controlled, mild erythema and swelling. no tenderness, hand temperature is warm but similar to left hand. Course/Dx - Differential Diagnoses - Skin Complaint Differential Diagnoses: Cellulitis - Diagnoses Provider Diagnosis: Skin tear of right hand without complication Discharge ED - Sign-Out/Discharge Documenting (check all that apply): Patient Departure All imaging exams completed and their final reports reviewed: No Studies - Discharge Plan Condition: Stable Disposition: HOME Patient Education Materials: Skin Tear (ED) Referrals: Gary Hilliard MD [Primary Care Provider] - If Needed - Billing Disposition and Condition Condition: STABLE Disposition: Home
--- OUTSIDE RECORDS SUMMARY | 2020-02-05 18:23 | XMS REPORT | Continuity of Care Document ---
:1935 External Reference #:[id number] Author Name Gary Hilliard MD Address [address] [place] [address] Problems Active Problems Provider Date Essential hypertension Onset: 01/23/2019 Multiple premature ventricular complexes Onset: 10/04/2018 Chronic obstructive lung disease Onset: 04/07/2018 Pulmonary hypertension Onset: 10/19/2017 Bilateral hearing loss Onset: 09/19/2017 History of malignant neoplasm of prostate Onset: 09/18/2017 Atrial fibrillation Onset: 05/21/2018 Hyperlipidemia Onset: 09/18/2017 Kidney stone Onset: 09/18/2017 Cardiac pacemaker in situ Gary Hilliard MD Onset: 01/06/2020 Social History Type Date Description Comments Sex Unknown Tobacco Use Start: Unknown End: Unknown Patient is a former smoker quit in 1988 Smoking Status Reviewed: 12/26/19 Patient is a former smoker quit in 1988 Allergies, Adverse Reactions, Alerts Active Allergies Reaction Severity Comments Date Diltiazem leg edema, malaise. Moderate 08/02/2019 Metoprolol wheezing, exacerbated COPD Moderate 08/02/2019 Rhythmol dizziness Moderate 08/02/2019 Medications Active Medications SIG Qnty Indications Ordering Date Provider Simvastatin 1 daily Oral 90tabs Unknown 05/21/2019 20mg Tablets Warfarin Sodium Oral; M/W/F 2 90tabs Unknown 12/30/2018 2.5mg Pills Tablets Furosemide 2 by mouth M W F 1 30tabs Unknown 09/18/2018 20mg by mouth T TH Sat Tablets Sun Warfarin Sodium Oral; Take 1 90tabs Unknown 04/16/2018 2mg T/TH/Sat/Sun Tablets Pilocarpine HCL 1 drop 4 times a 15units Unknown 09/18/2017 1% day Ophthalmic Solution Timolol Maleate 1 Ophthalmic; Unknown 09/18/2017 Ophthalmic Gel both eyes every 12 Forming hours. 0.25% GFS Immunizations CPT Code Status Date Vaccine Lot # [id number] Given 12/18/2019 Flu High Dose [id number] Given 09/18/2018 Flu High Dose 60020 Given 09/18/2017 Flu High Dose Vital Signs Date Vital Result Comment 12/26/2019 4:04pm BP Systolic 116 mmHg BP Diastolic 68 mmHg Height 65.5 inches 5'5.50" Weight 168.00 lb Heart Rate 60 /min Body Temperature 96.8 F O2 % BldC Oximetry 99 % BMI (Body Mass Index) 27.5 kg/m2 12/18/2019 3:06pm BP Systolic 116 mmHg BP Diastolic 66 mmHg Heart Rate 69 /min Body Temperature 98.2 F O2 % BldC Oximetry 98 % Results Test Acquired Date Facility Test Result H/L Range Note INR/Protime 02/04/2020 [facility] INR 2.38 High 0.82-1.09 1, [address] [place] [address] [phone] Comp Metabolic 01/28/2020 [facility] Sodium 143 mmol/L Normal 135-[address] [place] [address] [phone] Potassium 4.1 mmol/L Normal 3.5-5.0 Chloride 102 mmol/L Normal 101-111 Co2 Carbon Dioxide 35 mmol/L High 22-32 Anion Gap 6 mmol/L Normal 2-11 Glucose 92 mg/dL Normal 70-100 Blood Urea Nitrogen 25 mg/dL High 6-24 Creatinine 1.04 mg/dL Normal 0.67-1.17 BUN/Creatinine Ratio 24.0 High 8-20 Calcium 9.9 mg/dL Normal 8.6-10.3 Total Protein 7.0 g/dL Normal 6.4-8.9 Albumin 4.3 g/dL Normal 3.2-5.2 Globulin 2.7 g/dL Normal 2-4 Albumin/Globulin Ratio 1.6 Normal 1-3 Total Bilirubin 0.90 mg/dL Normal 0.2-1.0 Alkaline Phosphatase 106 U/L High 34-104 Alt 20 U/L Normal 7-52 Ast 28 U/L Normal 13-39 Egfr Non- 68.0 >60 Egfr 82.3 >60 3 Comp Metabolic 01/21/2020 [facility] Sodium 143 mmol/L Normal 135-[address] [place] [address] [phone] Potassium 4.1 mmol/L Normal 3.5-5.0 Chloride 103 mmol/L Normal 101-111 Co2 Carbon Dioxide 34 mmol/L High 22-32 Anion Gap 6 mmol/L Normal 2-11 Glucose 136 mg/dL High 70-100 Blood Urea Nitrogen 24 mg/dL Normal 6-24 Creatinine 1.12 mg/dL Normal 0.67-1.17 BUN/Creatinine Ratio 21.4 High 8-20 Calcium 9.6 mg/dL Normal 8.6-10.3 Total Protein 7.0 g/dL Normal 6.4-8.9 Albumin 4.2 g/dL Normal 3.2-5.2 Globulin 2.8 g/dL Normal 2-4 Albumin/Globulin Ratio 1.5 Normal 1-3 Total Bilirubin 0.90 mg/dL Normal 0.2-1.0 Alkaline Phosphatase 107 U/L High 34-104 Alt 23 U/L Normal 7-52 Ast 31 U/L Normal 13-39 Egfr Non- 62.5 >60 Egfr 75.6 >60 4 INR/Protime 01/21/2020 [facility] INR 1.78 High 0.82-1.09 5 [address] [place] [address] [phone] Laboratory test 12/30/2019 [facility] INR 2.5 finding ( )- - Comp Metabolic 12/26/2019 [facility] Sodium 140 mmol/L Normal 135-145 Panel [address] [place] [address] [phone] Potassium 4.4 mmol/L Normal 3.5-5.0 Chloride 98 mmol/L Low 101-111 Co2 Carbon Dioxide 35 mmol/L High 22-32 Anion Gap 7 mmol/L Normal 2-11 Glucose 103 mg/dL High 70-100 Blood Urea Nitrogen 28 mg/dL High 6-24 Creatinine 1.15 mg/dL Normal 0.67-1.17 BUN/Creatinine Ratio 24.3 High 8-20 Calcium 9.8 mg/dL Normal 8.6-10.3 Total Protein 6.9 g/dL Normal 6.4-8.9 Albumin 4.2 g/dL Normal 3.2-5.2 Globulin 2.7 g/dL Normal 2-4 Albumin/Globulin Ratio 1.6 Normal 1-3 Total Bilirubin 0.90 mg/dL Normal 0.2-1.0 Alkaline Phosphatase 98 U/L Normal 34-104 Alt 21 U/L Normal 7-52 Ast 30 U/L Normal 13-39 Egfr Non- 60.6 >60 Egfr 73.3 >60 6 INR/Protime 12/16/2019 [facility] INR 2.83 High 0.82-1.09 7 [address] [place] [address] [phone] CMP 12/11/2019 N2N/CCD Import Albumin QN 3.8 Serum/Plasma Alt - SGPT 33 Calcium Ser/Plasma Mass/Vol 9.3 Carbon Dioxide QN Ser/Plas 31 Chloride Serum/Plasma 102 Creatinine QN Serum MCNC 1.9 Glucose Serum 90 Alkaline Phosphatase QN Ser/PL 91 Potassium QN Ser/PL Mols/Vol 5.1 Protein Total QN Ser/Plas 7.8 Sodium QN Ser/Plasma 138 Ast - Sgot 23 BUN - Urea Nitrogen Ser/Plas 57 Bilirubin Total Mass/Vol 0.7 GFR 36 GFR 44 INR/Protime 12/09/2019 [facility] INR 2.85 High 0.82-1.09 8 [address] [place], [place] [id number] [phone] Laboratory test 12/09/2019 [facility] Magnesium 1.8 mg/dL Low 1.9-2.7 finding [address] [place] [address] [phone] Thyroxine 6.85 g/dL Normal 6.09-12.23 TSH (Thyroid Stim Horm) 3.53 mcIU/mL Normal 0.34-5.60 Free T4 (Free Thyroxine) 1.09 ng/dL Normal 0.61-1.12 Comp Metabolic 12/09/2019 [facility] Sodium 139 mmol/L Normal 135-145 Panel [address] [place] [address] [phone] Chloride 99 mmol/L Low 101-111 Co2 Carbon Dioxide 32 mmol/L Normal 22-32 Glucose 73 mg/dL Normal 70-100 Blood Urea Nitrogen 48 mg/dL High 6-24 Creatinine 1.75 mg/dL High 0.67-1.17 BUN/Creatinine Ratio 27.4 High 8-20 Calcium 10.1 mg/dL Normal 8.6-10.3 Total Protein 7.3 g/dL Normal 6.4-8.9 Albumin 4.4 g/dL Normal 3.2-5.2 Globulin 2.9 g/dL Normal 2-4 Albumin/Globulin Ratio 1.5 Normal 1-3 Total Bilirubin 0.80 mg/dL Normal 0.2-1.0 Alkaline Phosphatase 93 U/L Normal 34-104 Alt 24 U/L Normal 7-52 Ast 32 U/L Normal 13-39 Egfr Non- 37.3 >60 Egfr 45.2 >60 9 Potassium 6.0 mmol/L High 3.5-5.0 Anion Gap 8 mmol/L Normal 2-11 Laboratory test 12/09/2019 [facility] B-Type 221 pg/mL High <= [address] [place] [address] Peptide BNP [phone] INR/Protime 12/02/2019 [facility] INR 3.25 High 0.82-1.[address] [place] [address] [phone] INR/Protime 11/18/2019 [facility] INR 2.04 High 0.82-1.[address] [place] [address] [phone] INR/Protime 11/11/2019 [facility] INR 2.08 High 0.82-1.[address] [place] [address] [phone] INR/Protime 11/04/2019 [facility] INR 1.82 High 0.82-1.[address] [place] [address] [phone] INR/Protime 10/21/2019 [facility] INR 2.33 High 0.82-1.[address] [place] [address] [phone] INR/Protime 10/07/2019 [facility] INR 2.54 High 0.82-1.[address] [place] [address] [phone] INR/Protime 09/26/2019 [facility] INR 1.65 High 0.82-1.[address] [place] [address] [phone] INR/Protime 09/19/2019 [facility] INR 1.90 High 0.82-1.[address] [place] [address] [phone] Protime W/ INR 09/12/2019 [facility] INR 1.84 High 0.82-1.[address] [place] [address] [phone] Protime W/ INR 08/29/2019 [facility] INR 2.36 High 0.82-1.09 19 [address] [place] [address] [phone] 1 ORDERED 8.22.19 EXPIRES 2.22.20 2 Standard intensity warfarin therapeutic range: 2.0-3.0 High intensity warfarin therapeutic range: 2.5-3.5 3 Because ethnic data is not always readily available, this report includes an eGFR for both -Americans and non- Americans. The National Kidney Disease Education Program (NKDEP) does not endorse the use of the MDRD equation for patients that are not between the ages of 18 and 70, are , have extremes of body size, muscle mass, or nutritional status, or are non- or non-. According to the National Kidney Foundation, irrespective of diagnosis, the stage of the disease is based on the level of kidney function: Stage Description GFR(mL/min/1.73 m(2)) 1 Kidney damage with normal or decreased GFR 90 2 Kidney damage with mild decrease in GFR 60-89 3 Moderate decrease in GFR 30-59 4 Severe decrease in GFR 15-29 5 Kidney failure <15 (or dialysis) 4 Because ethnic data is not always readily available, this report includes an eGFR for both -Americans and non- Americans. The National Kidney Disease Education Program (NKDEP) does not endorse the use of the MDRD equation for patients that are not between the ages of 18 and 70, are , have extremes of body size, muscle mass, or nutritional status, or are non- or non-. According to the National Kidney Foundation, irrespective of diagnosis, the stage of the disease is based on the level of kidney function: Stage Description GFR(mL/min/1.73 m(2)) 1 Kidney damage with normal or decreased GFR 90 2 Kidney damage with mild decrease in GFR 60-89 3 Moderate decrease in GFR 30-59 4 Severe decrease in GFR 15-29 5 Kidney failure <15 (or dialysis) 5 Standard intensity warfarin therapeutic range: 2.0-3.0 High intensity warfarin therapeutic range: 2.5-3.5 6 Because ethnic data is not always readily available, this report includes an eGFR for both -Americans and non- Americans. The National Kidney Disease Education Program (NKDEP) does not endorse the use of the MDRD equation for patients that are not between the ages of 18 and 70, are , have extremes of body size, muscle mass, or nutritional status, or are non- or non-. According to the National Kidney Foundation, irrespective of diagnosis, the stage of the disease is based on the level of kidney function: Stage Description GFR(mL/min/1.73 m(2)) 1 Kidney damage with normal or decreased GFR 90 2 Kidney damage with mild decrease in GFR 60-89 3 Moderate decrease in GFR 30-59 4 Severe decrease in GFR 15-29 5 Kidney failure <15 (or dialysis) 7 Standard intensity warfarin therapeutic range: 2.0-3.0 High intensity warfarin therapeutic range: 2.5-3.5 8 Standard intensity warfarin therapeutic range: 2.0-3.0 High intensity warfarin therapeutic range: 2.5-3.5 9 Because ethnic data is not always readily available, this report includes an eGFR for both -Americans and non- Americans. The National Kidney Disease Education Program (NKDEP) does not endorse the use of the MDRD equation for patients that are not between the ages of 18 and 70, are , have extremes of body size, muscle mass, or nutritional status, or are non- or non-. According to the National Kidney Foundation, irrespective of diagnosis, the stage of the disease is based on the level of kidney function: Stage Description GFR(mL/min/1.73 m(2)) 1 Kidney damage with normal or decreased GFR 90 2 Kidney damage with mild decrease in GFR 60-89 3 Moderate decrease in GFR 30-59 4 Severe decrease in GFR 15-29 5 Kidney failure <15 (or dialysis) 10 Standard intensity warfarin therapeutic range: 2.0-3.0 High intensity warfarin therapeutic range: 2.5-3.5 11 Standard intensity warfarin therapeutic range: 2.0-3.0 High intensity warfarin therapeutic range: 2.5-3.5 12 Standard intensity warfarin therapeutic range: 2.0-3.0 High intensity warfarin therapeutic range: 2.5-3.5 13 Standard intensity warfarin therapeutic range: 2.0-3.0 High intensity warfarin therapeutic range: 2.5-3.5 14 Standard intensity warfarin therapeutic range: 2.0-3.0 High intensity warfarin therapeutic range: 2.5-3.5 15 Standard intensity warfarin therapeutic range: 2.0-3.0 High intensity warfarin therapeutic range: 2.5-3.5 16 Standard intensity warfarin therapeutic range: 2.0-3.0 High intensity warfarin therapeutic range: 2.5-3.5 17 Standard intensity warfarin therapeutic range: 2.0-3.0 High intensity warfarin therapeutic range: 2.5-3.5 18 Standard intensity warfarin therapeutic range: 2.0-3.0 High intensity warfarin therapeutic range: 2.5-3.5 19 Standard intensity warfarin therapeutic range: 2.0-3.0 High intensity warfarin therapeutic range: 2.5-3.5 Procedures Date Code Description Status 01/22/2020 91410 Anticoagulant MGMT For Patient Taking Warfarin, Inc Review Completed & Intr 01/09/2020 80934 Remove Impact Cerumen Irrigati Completed 12/30/2019 20982 Anticoagulant MGMT For Patient Taking Warfarin, Inc Review Completed & Intr 12/30/2019 62808 Remove Impact Cerumen Irrigati Completed 12/27/2019 49917 Remove Impact Cerumen Irrigati Completed 12/26/2019 52208 Anticoagulant MGMT For Patient Taking Warfarin, Inc Review Completed & Intr 12/26/2019 33277 Remove Impact Cerumen Irrigati Completed 12/17/2019 20525 Anticoagulant MGMT For Patient Taking Warfarin, Inc Review Completed & Intr 12/10/2019 47019 Anticoagulant MGMT For Patient Taking Warfarin, Inc Review Completed & Intr 12/03/2019 61873 Anticoagulant MGMT For Patient Taking Warfarin, Inc Review Completed & Intr 11/19/2019 00412 Anticoagulant MGMT For Patient Taking Warfarin, Inc Review Completed & Intr 11/05/2019 56750 Anticoagulant MGMT For Patient Taking Warfarin, Inc Review Completed & Intr 10/22/2019 14184 Anticoagulant MGMT For Patient Taking Warfarin, Inc Review Completed & Intr 10/08/2019 80376 Anticoagulant MGMT For Patient Taking Warfarin, Inc Review Completed & Intr 09/30/2019 44519 Anticoagulant MGMT For Patient Taking Warfarin, Inc Review Completed & Intr 09/20/2019 82997 Anticoagulant MGMT For Patient Taking Warfarin, Inc Review Completed & Intr Medical Devices Description No Information Available Encounters Type Date Location Provider Dx Diagnosis Office Visit 12/26/2019 [facility] Demian Arambula MD H61.23 Impacted cerumen, 3:45p bilateral Office Visit 12/18/2019 [facility] Demian Arambula MD I10 Essential (primary ) 3:00p hypertension J30.89 Other allergic rhinitis Z23 Encounter for immunization Assessments Date Code Description Provider 12/30/2019 I48.19 Other persistent atrial fibrillation Nurse 12/30/2019 H61.23 Impacted cerumen, bilateral Nurse 12/26/2019 H61.23 Impacted cerumen, bilateral Latanya Arambula MD 12/18/2019 I10 Essential (primary) hypertension Latanya Arambula MD 12/18/2019 J30.89 Other allergic rhinitis Latanya Arambula MD 12/18/2019 Z23 Encounter for immunization Latanya Arambula MD 11/19/2019 I48.19 Other persistent atrial fibrillation Gary Hilliard MD Plan of Treatment No Information Available Functional Status Description No Information Available Mental Status Description No Information Available Referrals Description No Information Available
--- OUTSIDE RECORDS SUMMARY | 2020-02-05 18:23 | XMS REPORT | Continuity of Care Document ---
:1935 External Reference #:[id number] Author Name Latanya Arambula MD Address [address] [place] [address] Problems Active Problems Provider Date Essential hypertension Onset: 01/23/2019 Multiple premature ventricular complexes Onset: 10/04/2018 Chronic obstructive lung disease Onset: 04/07/2018 Pulmonary hypertension Onset: 10/19/2017 Bilateral hearing loss Onset: 09/19/2017 History of malignant neoplasm of prostate Onset: 09/18/2017 Atrial fibrillation Onset: 05/21/2018 Hyperlipidemia Onset: 09/18/2017 Kidney stone Onset: 09/18/2017 Cardiac pacemaker in situ Gary Hilliard MD Onset: 01/06/2020 Inactive Problems Pulmonary embolism Onset: 07/25/2019 Inactive: 07/25/2019 Social History Type Date Description Comments Sex [...] CPT Code Status Date Vaccine Lot # [id number] Given 12/18/2019 Flu High Dose [id number] Given 09/18/2018 Flu High Dose 99437 Given 09/18/2017 Flu High Dose Vital Signs [...] Date Facility Test Result H/L Range Note Comp Metabolic 01/21/2020 [facility] Sodium 143 mmol/L Normal 135-[address] [place] [address] [phone] Potassium 4.1 mmol/L Normal 3.5-5.0 Chloride 103 [...] Egfr Non- 62.5 >60 Egfr 75.6 >60 1 INR/Protime 01/21/2020 [facility] INR 1.78 High 0.82-1.09 2, [address] [place] [address] [phone] Laboratory test 12/30/2019 [facility] INR 2.5 finding ( )- - Comp Metabolic 12/26/2019 [facility] Sodium 140 Normal 135- [address] mmol/[place] [address] [phone] Potassium 4.4 mmol/L Normal 3.5-5.0 Chloride 98 [...] Egfr Non- 60.6 >60 Egfr 73.3 >60 4 INR/Protime 12/16/2019 [facility] INR 2.83 High 0.82-1.[address] [place] [address] [phone] CMP 12/11/2019 N2N/CCD Import Albumin QN 3.8 [...] Total Mass/Vol 0.7 GFR 36 GFR 44 Laboratory test 12/09/2019 [facility] B-Type 221 pg/mL High <= [address] [place] [address] Peptide BNP [phone] Comp Metabolic 12/09/2019 [facility] Sodium 139 Normal 135- [address] mmol/[place] [address] [phone] Chloride 99 mmol/L Low 101-111 Co2 Carbon [...] Egfr Non- 37.3 >60 Egfr 45.2 >60 6 Potassium 6.0 mmol/L High 3.5-5.0 Anion Gap 8 mmol/L Normal 2-11 Laboratory test 12/09/2019 [facility] Magnesium 1.8 mg/dL Low 1.9-2.7 finding [address] [place] [address] [phone] Thyroxine 6.85 g/dL Normal 6.09-12.23 TSH (Thyroid Stim Horm) 3.53 mcIU/mL Normal 0.34-5.60 Free T4 (Free Thyroxine) 1.09 ng/dL Normal 0.61-1.12 INR/Protime 12/09/2019 [facility] INR 2.85 High 0.82-1.09 7 [address] [place] [address] [phone] INR/Protime 12/02/2019 [facility] INR 3.25 High 0.82-1.09 8 [address] [place] [address] [phone] INR/Protime 11/18/2019 [facility] INR 2.04 High 0.82-1.09 9 [address] [place] [address] [phone] INR/Protime 11/11/2019 [facility] INR 2.08 High 0.82-1.[address] [place] [address] [phone] INR/Protime 11/04/2019 [facility] INR 1.82 High 0.82-1.[address] [place] [address] [phone] INR/Protime 10/21/2019 [facility] INR 2.33 High 0.82-1.[address] [place] [address] [phone] INR/Protime 10/07/2019 [facility] INR 2.54 High 0.82-1.[address] [place] [address] [phone] INR/Protime 09/26/2019 [facility] INR 1.65 High 0.82-1.[address] [place] [address] [phone] INR/Protime 09/19/2019 [facility] INR 1.90 High 0.82-1.[address] [place] [address] [phone] Protime W/ INR 09/12/2019 [facility] INR 1.84 High 0.82-1.[address] [place] [address] [phone] Protime W/ INR 08/29/2019 [facility] INR 2.36 High 0.82-1.09 17 [address] [place] [address] [phone] Coumadin Dx 07/25/2019 N2N/CCD Import Coumadin Dx Pe INR 07/25/2019 N2N/CCD Import INR 1.45 _ - INR Goal 07/25/2019 N2N/CCD Import INR Goal 2.0 to 3.0 Recheck INR 07/25/2019 N2N/CCD Import Recheck INR 9 1 Because ethnic data is not always readily [...] 15-29 5 Kidney failure <15 (or dialysis) 2 ORDERED 8.22.19 EXPIRES 2.22.20 3 Standard intensity warfarin therapeutic range: 2.0-3.0 High intensity warfarin therapeutic range: 2.5-3.5 4 Because ethnic data is not always [...] High intensity warfarin therapeutic range: 2.5-3.5 9 Standard intensity warfarin therapeutic range: 2.0-3.0 High intensity warfarin therapeutic range: 2.5-3.5 10 Standard intensity warfarin therapeutic range: 2.0-3.0 [...] 2.5-3.5 Procedures Date Code Description Status 01/22/2020 35105 Anticoagulant MGMT For Patient Taking Warfarin, Inc Review Completed & Intr 01/09/2020 67456 Remove Impact Cerumen Irrigati Completed 12/30/2019 68070 Anticoagulant MGMT For Patient Taking Warfarin, Inc Review Completed & Intr 12/30/2019 07322 Remove Impact Cerumen Irrigati Completed 12/27/2019 45430 Remove Impact Cerumen Irrigati Completed 12/26/2019 54614 Anticoagulant MGMT For Patient Taking Warfarin, Inc Review Completed & Intr 12/26/2019 85222 Remove Impact Cerumen Irrigati Completed 12/17/2019 46555 Anticoagulant MGMT For Patient Taking Warfarin, Inc Review Completed & Intr 12/10/2019 51884 Anticoagulant MGMT For Patient Taking Warfarin, Inc Review Completed & Intr 12/03/2019 20440 Anticoagulant MGMT For Patient Taking Warfarin, Inc Review Completed & Intr 11/19/2019 27952 Anticoagulant MGMT For Patient Taking Warfarin, Inc Review Completed & Intr 11/05/2019 84527 Anticoagulant MGMT For Patient Taking Warfarin, Inc Review Completed & Intr 10/22/2019 79432 Anticoagulant MGMT For Patient Taking Warfarin, Inc Review Completed & Intr 10/08/2019 02443 Anticoagulant MGMT For Patient Taking Warfarin, Inc Review Completed & Intr 09/30/2019 20100 Anticoagulant MGMT For Patient Taking Warfarin, Inc Review Completed & Intr 09/20/2019 96467 Anticoagulant MGMT For Patient Taking Warfarin, Inc Review Completed & Intr 07/25/2019 64644 Anticoagulant MGMT For Patient Taking Warfarin, Inc Review Completed & Intr Medical Devices Description No Information Available Encounters Type Date Location Provider Dx Diagnosis Office Visit 12/26/2019 [facility] Latanya Arambula MD H61.23 Impacted cerumen, 3:45p bilateral [...]
--- OUTSIDE RECORDS SUMMARY | 2020-02-05 18:23 | XMS REPORT | Continuity of Care Document ---
:1935 External Reference #:[id number] Author Name Latanya Arambula MD Address [address] [place] [address] Problems Active Problems Provider Date Essential hypertension [...] CPT Code Status Date Vaccine Lot # [id number] Given 12/18/2019 Flu High Dose [id number] Given 09/18/2018 Flu High Dose 99862 Given 09/18/2017 Flu High Dose Vital Signs [...] Test Result H/L Range Note Comp Metabolic 01/28/2020 [facility] Sodium 143 mmol/L Normal 135-145 Panel [address] [place], [place] [id number] [phone] Potassium 4.1 mmol/L Normal 3.5-5.0 Chloride 102 [...] Egfr Non- 68.0 >60 Egfr 82.3 >60 1 Comp Metabolic 01/21/2020 [facility] Sodium 143 mmol/L Normal 135-145 Panel [address] [place] [address] [phone] Potassium 4.1 mmol/L Normal 3.5-5.0 Chloride 103 [...] Egfr Non- 62.5 >60 Egfr 75.6 >60 2 INR/Protime 01/21/2020 [facility] INR 1.78 High 0.82-1.09 3, [address] [place], [place] [id number] [phone] Laboratory test 12/30/2019 [facility] CF INR 2.5 finding ( )- - Comp Metabolic 12/26/2019 [facility] Sodium 140 Normal 135- [address] mmol/L [place], [place] [id number] [phone] Potassium 4.4 mmol/L Normal 3.5-5.0 Chloride 98 [...] Egfr Non- 60.6 >60 Egfr 73.3 >60 5 INR/Protime 12/16/2019 [facility] INR 2.83 High 0.82-1.09 6 [address] [place] [address] [phone] CMP 12/11/2019 N2N/CCD Import Albumin QN 3.8 [...] 0.7 GFR 36 GFR 44 INR/Protime 12/09/2019 [facility] INR 2.85 High 0.82-1.09 7 [address] [place] [address] [phone] Laboratory test 12/09/2019 [facility] Magnesium 1.8 mg/dL Low 1.9-2.7 finding [address] [place] [address] [phone] Thyroxine 6.85 g/dL Normal 6.09-12.23 TSH (Thyroid Stim Horm) 3.53 mcIU/mL Normal 0.34-5.60 Free T4 (Free Thyroxine) 1.09 ng/dL Normal 0.61-1.12 Comp Metabolic 12/09/2019 [facility] Sodium 139 mmol/L Normal 135-145 Panel [address] [place] [address] [phone] Chloride 99 mmol/L Low 101-111 Co2 Carbon [...] Egfr Non- 37.3 >60 Egfr 45.2 >60 8 Potassium 6.0 mmol/L High 3.5-5.0 Anion Gap 8 mmol/L Normal 2-11 Laboratory test 12/09/2019 [facility] B-Type 221 pg/mL High <= [address] [place] [address] Peptide BNP [phone] INR/Protime 12/02/2019 [facility] INR 3.25 High 0.82-1.[address] [place] [address] [phone] INR/Protime 11/18/2019 [facility] INR 2.04 High 0.82-1.[address] [place] [address] [phone] INR/Protime 11/11/2019 [facility] INR 2.08 High 0.82-1.[address] [place] [address] [phone] INR/Protime 11/04/2019 [facility] INR 1.82 High 0.82-1.[address] [place] [address] [phone] INR/Protime 10/21/2019 [facility] INR 2.33 High 0.82-1.[address] [place] [address] [phone] INR/Protime 10/07/2019 [facility] INR 2.54 High 0.82-1.[address] [place] [address] [phone] INR/Protime 09/26/2019 [facility] INR 1.65 High 0.82-1.[address] [place] [address] [phone] INR/Protime 09/19/2019 [facility] INR 1.90 High 0.82-1.[address] [place] [address] [phone] Protime W/ INR 09/12/2019 [facility] INR 1.84 High 0.82-1.[address] [place] [address] [phone] Protime W/ INR 08/29/2019 [facility] INR 2.36 High 0.82-1.09 18 [address] [place] [address] [phone] 1 Because ethnic data is not always [...] 5 Kidney failure <15 (or dialysis) 2 Because ethnic data is not always readily [...] 15-29 5 Kidney failure <15 (or dialysis) 3 ORDERED 07.18.19 EXPIRES 01.18.20 4 Standard intensity warfarin therapeutic range: 2.0-3.0 High intensity warfarin therapeutic range: 2.5-3.5 5 Because ethnic data is not always readily [...] 15-29 5 Kidney failure <15 (or dialysis) 6 Standard intensity warfarin therapeutic range: 2.0-3.0 High intensity warfarin therapeutic range: 2.5-3.5 7 Standard intensity warfarin therapeutic range: 2.0-3.0 High intensity warfarin therapeutic range: 2.5-3.5 8 Because ethnic data is not always readily [...] 15-29 5 Kidney failure <15 (or dialysis) 9 Standard intensity warfarin therapeutic range: 2.0-3.0 [...] 2.5-3.5 Procedures Date Code Description Status 01/22/2020 37738 Anticoagulant MGMT For Patient Taking Warfarin, Inc Review Completed & Intr 01/09/2020 32731 Remove Impact Cerumen Irrigati Completed 12/30/2019 26371 Anticoagulant MGMT For Patient Taking Warfarin, Inc Review Completed & Intr 12/30/2019 62277 Remove Impact Cerumen Irrigati Completed 12/27/2019 32933 Remove Impact Cerumen Irrigati Completed 12/26/2019 71850 Anticoagulant MGMT For Patient Taking Warfarin, Inc Review Completed & Intr 12/26/2019 52305 Remove Impact Cerumen Irrigati Completed 12/17/2019 12076 Anticoagulant MGMT For Patient Taking Warfarin, Inc Review Completed & Intr 12/10/2019 17893 Anticoagulant MGMT For Patient Taking Warfarin, Inc Review Completed & Intr 12/03/2019 61426 Anticoagulant MGMT For Patient Taking Warfarin, Inc Review Completed & Intr 11/19/2019 85458 Anticoagulant MGMT For Patient Taking Warfarin, Inc Review Completed & Intr 11/05/2019 51829 Anticoagulant MGMT For Patient Taking Warfarin, Inc Review Completed & Intr 10/22/2019 81747 Anticoagulant MGMT For Patient Taking Warfarin, Inc Review Completed & Intr 10/08/2019 05722 Anticoagulant MGMT For Patient Taking Warfarin, Inc Review Completed & Intr 09/30/2019 53360 Anticoagulant MGMT For Patient Taking Warfarin, Inc Review Completed & Intr 09/20/2019 33540 Anticoagulant MGMT For Patient Taking Warfarin, Inc Review Completed & Intr Medical Devices Description No Information Available Encounters Type Date Location Provider Dx Diagnosis Office Visit 12/26/2019 [facility] Demian Arambula MD H61.23 Impacted cerumen, 3:45p bilateral Office Visit 12/18/2019 [facility] Latanya Arambula MD I10 Essential (primary ) 3:00p [...]
--- OUTSIDE RECORDS SUMMARY | 2020-02-05 18:23 | XMS REPORT | Continuity of Care Document ---
:1935 External Reference #:[id number] Author Name Latanya Arambula MD (transmitted by agent of provider Lalit Hilliard) Address [address] [place] [address] Problems Active Problems Provider Date Essential hypertension Onset: 01/23/2019 Multiple premature ventricular complexes Onset: 10/04/2018 Chronic obstructive lung disease Onset: 04/07/2018 Pulmonary hypertension Onset: 10/19/2017 Bilateral hearing loss Onset: 09/19/2017 History of malignant neoplasm of prostate Onset: 09/18/2017 Hyperlipidemia Onset: 09/18/2017 Kidney stone Onset: 09/18/2017 Inactive Problems Pulmonary embolism Onset: 07/25/2019 Inactive: [...] CPT Code Status Date Vaccine Lot # [id number] Given 12/18/2019 Flu High Dose [id number] 94589 Given 09/18/2018 Flu High Dose 71833 Given 09/18/2017 Flu High Dose Vital Signs [...] Test Result H/L Range Note Comp Metabolic 12/26/2019 [facility] Sodium 140 mmol/L Normal 135-[address] [place] [address] [phone] Potassium 4.4 mmol/L Normal 3.5-5.0 Chloride 98 [...] Egfr Non- 60.6 >60 Egfr 73.3 >60 1 INR/Protime 12/16/2019 [facility] INR 2.83 High 0.82-1.09 2, [address] [place] [address] [phone] CMP 12/11/2019 N2N/CCD Import Albumin QN 3.8 [...] GFR 36 GFR 44 Laboratory test 12/09/2019 [facility] B-Type 221 pg/mL High <= [address] [place] [address] Peptide BNP [phone] Comp Metabolic 12/09/2019 [facility] Sodium 139 Normal 135- [address] mmol/[place] [address] [phone] Chloride 99 mmol/L Low 101-111 Co2 Carbon [...] Egfr Non- 37.3 >60 Egfr 45.2 >60 4 Potassium 6.0 mmol/L High 3.5-5.0 Anion Gap 8 mmol/L Normal 2-11 Laboratory test 12/09/2019 [facility] Magnesium 1.8 mg/dL Low 1.9-2.[address] [place] [address] [phone] Thyroxine 6.85 g/dL Normal 6.09-12.23 TSH (Thyroid Stim Horm) 3.53 mcIU/mL Normal 0.34-5.60 Free T4 (Free Thyroxine) 1.09 ng/dL Normal 0.61-1.12 INR/Protime 12/09/2019 [facility] INR 2.85 High 0.82-1.[address] [place] [address] [phone] INR/Protime 12/02/2019 [facility] INR 3.25 High 0.82-1.[address] [place] [address] [phone] INR/Protime 11/18/2019 [facility] INR 2.04 High 0.82-1.[address] [place] [address] [phone] INR/Protime 11/11/2019 [facility] INR 2.08 High 0.82-1.[address] [place] [address] [phone] INR/Protime 11/04/2019 [facility] INR 1.82 High 0.82-1.[address] [place] [address] [phone] INR/Protime 10/21/2019 [facility] INR 2.33 High 0.82-1.[address] [place] [address] [phone] INR/Protime 10/07/2019 [facility] INR 2.54 High 0.82-1.[address] [place] [address] [phone] INR/Protime 09/26/2019 [facility] INR 1.65 High 0.82-1.[address] [place] [address] [phone] INR/Protime 09/19/2019 [facility] INR 1.90 High 0.82-1.[address] [place] [address] [phone] Protime W/ INR 09/12/2019 [facility] INR 1.84 High 0.82-1.[address] [place] [address] [phone] Protime W/ INR 08/29/2019 [facility] INR 2.36 High 0.82-1.[address] [place] [address] [phone] Coumadin Dx 07/25/2019 N2N/CCD Import Coumadin Dx Pe INR 07/25/2019 N2N/CCD Import INR 1.45 _ - INR Goal 07/25/2019 N2N/CCD Import INR Goal 2.0 to 3.0 Recheck INR 07/25/2019 N2N/CCD Import Recheck INR 07/31/2019 INR 07/24/2019 N2N/CCD Import INR 1.45 _ High 0.82-1.09 Coumadin Dx 07/11/2019 N2N/CCD Import Coumadin Dx Pe INR 07/11/2019 N2N/CCD Import INR 1.70 _ - INR Goal 07/11/2019 N2N/CCD Import INR Goal 2.0 to 3.0 Recheck INR 07/11/2019 N2N/CCD Import Recheck INR 2 weeks 07/25/2019 INR 07/10/2019 N2N/CCD Import INR 1.70 _ High 0.82-1.09 1 Because ethnic data is not always [...] Kidney failure <15 (or dialysis) 2 ORDERED 8..19 EXPIRES 01.18.20 3 Standard intensity warfarin therapeutic range: 2.0-3.0 [...] High intensity warfarin therapeutic range: 2.5-3.5 6 Standard intensity warfarin therapeutic range: 2.0-3.0 [...] range: 2.5-3.5 Procedures Date Code Description Status 12/17/2019 89660 Anticoagulant MGMT For Patient Taking Warfarin, Inc Review Completed & Intr 12/10/2019 71991 Anticoagulant MGMT For Patient Taking Warfarin, Inc Review Completed & Intr 12/03/2019 49493 Anticoagulant MGMT For Patient Taking Warfarin, Inc Review Completed & Intr 11/19/2019 54164 Anticoagulant MGMT For Patient Taking Warfarin, Inc Review Completed & Intr 11/05/2019 81657 Anticoagulant MGMT For Patient Taking Warfarin, Inc Review Completed & Intr 10/22/2019 27823 Anticoagulant MGMT For Patient Taking Warfarin, Inc Review Completed & Intr 10/08/2019 93433 Anticoagulant MGMT For Patient Taking Warfarin, Inc Review Completed & Intr 09/30/2019 88333 Anticoagulant MGMT For Patient Taking Warfarin, Inc Review Completed & Intr 09/20/2019 26131 Anticoagulant MGMT For Patient Taking Warfarin, Inc Review Completed & Intr 07/25/2019 96616 Anticoagulant MGMT For Patient Taking Warfarin, Inc Review Completed & Intr 07/11/2019 84805 Anticoagulant MGMT For Patient Taking Warfarin, Inc Review Completed & Intr Medical Devices Description No Information Available Encounters Type Date Location Provider Dx Diagnosis Office Visit 12/26/2019 [facility] Demian Arambula MD H61.23 Impacted cerumen, 3:45p bilateral Office Visit 12/18/2019 [facility] Demian Arambula MD I10 Essential (primary ) 3:00p hypertension J30.89 Other allergic rhinitis Assessments Date Code Description Provider 12/26/2019 H61.23 Impacted cerumen, bilateral Latanya Arambula MD 12/18/2019 I10 Essential (primary) hypertension Latanya Arambula MD 12/18/2019 J30.89 Other allergic rhinitis Latanya Arambula MD 11/19/2019 I48.19 Other persistent atrial fibrillation Gary Hilliard MD Plan of Treatment Future Appointment(s):12/30/2019 2:15 pm - [facility]12/26/2019 - Latanya Arambula MDH61.23 Impacted cerumen, bilateral Functional Status Description No Information Available Mental Status Description No Information Available Referrals Description No Information Available
--- OUTSIDE RECORDS SUMMARY | 2020-02-05 18:23 | XMS REPORT | Continuity of Care Document ---
:1935 External Reference #:[id number] Author Name Pepper Brewer NP (transmitted by agent of provider Suzanne Bocanegra) Address [address] [place] [id number] Care Team Providers Name Role Phone Jasmeet Bourne MD - Cardiovascular Care Team Information Hand Thermal Cutter [phone] Disease Latanya Arambula M.D. - Family Care Team Information Hand Thermal Cutter [phone] Medicine Problems Active Problems Provider Date Atrial fibrillation Ruthy Payan M.D. Onset: 07/15/2015 Essential hypertension Ruthy Payan M.D. Onset: 07/15/2015 Tricuspid valve disorder, non-rheumatic Ruthy Payan M.D. Onset: 07/15/2015 Chronic atrial fibrillation Ruthy Payan M.D. Onset: 05/12/2016 Chronic obstructive lung disease Rosy Moreno MD Onset: 08/30/2016 Cardiomyopathy Ruthy Payan M.D. Onset: 09/14/2017 Mitral valve disorder Ruthy Payan M.D. Onset: 10/12/2017 Pulmonary hypertension due to left heart disease Ruthy Payan M.D. Onset: Premature beats Ruthy Payan M.D. Onset: 04/27/2018 Paroxysmal atrial fibrillation Ruthy Payan M.D. Onset: 08/13/2018 Cardiac pacemaker in situ Ruthy Payan M.D. Onset: 08/13/2018 Pulmonary hypertension due to left heart disease Ruthy Payan M.D. 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 Onset: 01/24 failure Social History Type Date Description Comments Sex Unknown Tobacco Use Start: Unknown End: Former Cigarette Smoker Unknown Smoking Status Reviewed: 12/30/19 Former Cigarette Smoker ETOH Use Vodka 4oz per day Recreational Drug Use Denies Drug Use Tobacco Use Start: Unknown End: Patient is a former quit in 1988 Unknown smoker Exercise Type/Frequency Exercises regularly 5 days/week at gym Allergies, Adverse Reactions, Alerts Active Allergies Reaction Severity Comments Date Rythmol dizziness Moderate 08/29/2012 Metoprolol Succinate 08/01/2018 Medications Active Medications SIG Qnty Indications Ordering Date Provider Furosemide 2 by mouth every 180tabs Ruthy Payan, 10/15/2018 20mg Tablets day M.D. Pulse Oximeter use as instructed [facility] R09.02 Rosy Moreno, 06/13/2017 [facility] Oxygen please use o2 at 1units Rosy Moreno, [facility] MD exertion Multivitamins 1 tablet po daily Unknown Simvastatin 1 by mouth every 90tabs Ruthy Payan, 20mg day M.D. Tablets Warfarin 1 tablet for 2 Unknown 2mg Tablets days and 2.5 tablet for 5 days as directed ( adjustment Dr. Maharaj) Timolol Maleate 1 drop per eye 3 Unknown 0.25% times a day Solution Pilocarpine HCL 1 gtt in both eyes Unknown 1% 1 x month Solution Medications Administered in Office Medication SIG Qnty Indications Ordering Provider Date Inj, Regadenoson, 0.1 MG Deep Edgar M.D., 07/21/2015 Injection GERONIMO LOVE Inj, Regadenoson, 0.1 MG Ruthy Payan M.D. 07/21/2015 Injection Technetium TC 99M Deep Edgar M.D., 07/21/2015 Tetrofosmin, Per Unit Dose GERONIMO LOVE Up To 40 Millicuries Injection Technetium TC 99M Ruthy Payan M.D. 07/21/2015 Tetrofosmin, Per Unit Dose Up To 40 Millicuries Injection Immunizations CPT Code Status Date Vaccine Lot # [id number] Given 08/30/2016 Influenza Virus Vaccine, Quadrivalent, Split, [id number] Preservative Free Vital Signs Date Vital Result Comment 12/30/2019 1:32pm Height 67 inches 5'7" Weight 168.00 lb with shoes Heart Rate 61 /min BP Systolic Sitting 104 mmHg Ra BP Diastolic Sitting 66 mmHg Ra BP Systolic Standing 104 mmHg Ra BP Diastolic Standing 76 mmHg Ra BMI (Body Mass Index) 26.3 kg/m2 Ejection Fraction 45-50% Echo 12/17/2019 12/19/2019 1:46pm Height 67 inches 5'7" Weight 165.00 lb Heart Rate 72 /min BP Systolic 100 mmHg BP Diastolic 60 mmHg O2 % BldC Oximetry 98 % BMI (Body Mass Index) 25.8 kg/m2 Results Test Acquired Date Facility Test Result H/L Range Note Comp Metabolic 12/09/2019 [facility] Sodium 139 mmol/L Normal 135-145 Panel [address] [place] [address] [phone] Chloride 99 mmol/L Low 101-111 Co2 Carbon [...] Egfr Non- 37.3 >60 Egfr 45.2 >60 1 Potassium 6.0 mmol/L High 3.5-5.0 Anion Gap 8 mmol/L Normal 2-11 Laboratory test 12/09/2019 [facility] Magnesium 1.8 mg/dL Low 1.9-2.[address] [place] [address] [phone] B-Type Natriuretic Peptide BNP 221 pg/mL High <=100 Thyroid 12/09/2019 [facility] Free T4 (Free 1.09 Normal 0.61- 1.[address] Thyroxine) ng/[place] [address] [phone] Thyroxine 6.85 g/dL Normal 6.09-12.23 TSH (Thyroid Stim Horm) 3.53 mcIU/mL Normal 0.34-5.60 1 Because ethnic data is not always [...] 15-29 5 Kidney failure <15 (or dialysis) Procedures Date Code Description Status 12/30/2019 22355 EKG Tracing & Interpretation Completed 12/17/2019 44915 ECHO Transthoracic, Real-Time 2D With Doppler And Color Completed Flow 10/29/2019 31894 Icd Eval Sing,Dual,Multi Lead Remote Recpt Transm Tech Rev Completed Tech S 10/29/2019 47193 Icd Eval Sing,Dual,Multi Lead Remote Recpt Transm Tech Rev Completed Tech S 10/29/2019 28700 Pacemaker Check Remote Up To 90Days Single,Dual,Multiple Completed Lead 10/29/2019 16877 Pacemaker Check Remote Up To 90Days Single,Dual,Multiple Completed Lead 07/30/2019 64892 Icd Eval Sing,Dual,Multi Lead Remote Recpt Transm Tech Rev Completed Tech S 07/30/2019 64327 Icd Eval Sing,Dual,Multi Lead Remote Recpt Transm Tech Rev Completed Tech S 07/30/2019 19422 Pacemaker Check Remote Up To 90Days Single,Dual,Multiple Completed Lead 07/30/2019 67205 Pacemaker Check Remote Up To 90Days Single,Dual,Multiple Completed Lead Medical Devices Description No Information Available Encounters Type Date Location Provider Dx Diagnosis Office Visit 12/19/2019 [facility] Rosy Tiffanie, J44.9 Chronic obstructive 1:45p Sleep Services Of pulmonary disease, [facility] unspecified R09.02 Hypoxemia Assessments Date Code Description Provider 12/30/2019 I49.3 Ventricular premature depolarization Pepper Brewer NP 12/30/2019 I42.9 Cardiomyopathy, unspecified Pepper Brewer, SIDDHARTH 12/30/2019 I48.21 Permanent atrial fibrillation Pepper Brewer NP 12/30/2019 Z95.0 Presence of cardiac pacemaker Pepper Brewer NP 12/19/2019 J44.9 Chronic obstructive pulmonary disease, Rosy Moreno MD unspecified 12/19/2019 R09.02 Hypoxemia Rosy Moreno MD 12/17/2019 I42.9 Cardiomyopathy, unspecified Ruthy Payan M.D. 12/17/2019 I42.9 Cardiomyopathy, unspecified Traveling ECHO 2 12/17/2019 I48.21 Permanent atrial fibrillation Traveling ECHO 2 12/17/2019 I49.3 Ventricular premature depolarization Traveling ECHO 2 10/29/2019 I48.21 Permanent atrial fibrillation Ruthy Payan M.D. 10/29/2019 I48.21 Permanent atrial fibrillation Remote Device Checks 10/29/2019 Z95.0 Presence of cardiac pacemaker Ruthy Payan M.D. 10/29/2019 Z95.0 Presence of cardiac pacemaker Remote Device Checks 07/30/2019 I48.2 Chronic atrial fibrillation Ruthy Payan M.D. 07/30/2019 I48.2 Chronic atrial fibrillation Remote Device Checks 07/30/2019 Z95.0 Presence of cardiac pacemaker Ruthy Payan M.D. 07/30/2019 Z95.0 Presence of cardiac pacemaker Remote Device Checks Plan of Treatment Future Appointment(s):01/14/2020 3:20 pm - Pepper Brewre NP at [facility]01/07/2020 10:00 am - [facility] Visit [facility] AT Avocwcjk07/10/2020 10:00 am - Nurse Visit [facility] AT Czuxgqth89/25/2021 3:00 pm - Tiera Ruffin NP at [facility]04/28/2020 2:00 pm - Jesús Tillman MD at [facility] Dermatology AT Fhoxdask28/03/2020 - Pepper Thuman, NPI49.3 Ventricular premature depolarizationNew Orders:Holter Monitor, Ordered: I42.9 Cardiomyopathy, unspecifiedFollow up:follow up in 1.5-2 weeks with Pepper Follow up with Dr. Payan in 3 months.Recommendations:Please reduce Lasix to 20mg by mouth daily ( 1 tablet by mouth daily) increase your oral intake. At your next appointment we can consider adding back Lisinopril Please weigh yourself daily, monitor swelling in your legs.I48.21 Permanent atrial rnnbbqrjowwzB85.0 Presence of cardiac pacemaker Functional Status Description No Information Available Mental Status Description No Information Available Referrals Description No Information Available
--- OUTSIDE RECORDS SUMMARY | 2020-02-05 18:23 | XMS REPORT | Continuity of Care Document ---
:1935 External Reference #:[id number] Author Name Rosy Moreno MD (transmitted by agent of provider Omayra Sotelo) Address [address] [facility], [address] [place] [address] Care Team Providers Name Role Phone Jasmeet Bourne MD - Cardiovascular Care Team Information Photographic Engineer Disease Latanya Arambula M.D. - Family Care Team Information Photographic Engineer [phone] Medicine Problems Active Problems Provider Date Atrial [...] Former Cigarette Smoker Unknown Smoking Status Reviewed: 12/19/19 Former Cigarette Smoker ETOH Use Vodka 4oz per day Recreational Drug Use Denies Drug Use Tobacco Use Start: Unknown End: Patient is a former quit in 1988 Unknown smoker Exercise Type/Frequency Exercises regularly 5 days/week at gym Allergies, Adverse Reactions, Alerts Active Allergies Reaction Severity Comments Date Rythmol dizziness Moderate 08/29/2012 Metoprolol Succinate 08/01/2018 Medications Active Medications SIG Qnty Indications Ordering Date Provider Aldactone 1 by mouth every 90tabs I49.3 Ruthy Payan, 01/24/2019 25mg Tablets day M.D. Furosemide 2 by mouth every 180tabs Ruthy Payan, 10/15/2018 20mg Tablets day M.D. Pulse Oximeter use as instructed 1units R09.02 [facility] [place], 06/13/2017 [facility] [place] O[place] please use o2 at 1units [facility], 06/07/2017 Misc 1L/min during MD exertion Multivitamins 1 tablet po daily Unknown Simvastatin 1 by mouth every 90tabs Ruthy Payan, 20mg day M.D. Tablets Warfarin 1 tablet for 2 Unknown 2mg Tablets days and 2.5 tablet for 5 days as directed ( adjustment Dr. Maharaj) Timolol Maleate 1 drop per eye 3 Unknown 0.25% times a day Solution Lisinopril 1/2 pill by mouth 45tabs Ruthy Payan, 5mg Tablets every day (12/12/19 M.DLatisha Hold) Pilocarpine HCL 1 gtt in both eyes [...] CPT Code Status Date Vaccine Lot # [id number] Given 08/30/2016 Influenza Virus Vaccine, Quadrivalent, Split, [id number] Preservative Free Vital Signs Date Vital Result Comment 12/19/2019 1:46pm Height 67 inches 5'7" Weight 165.00 lb Heart Rate 72 /min BP Systolic 100 mmHg BP Diastolic 60 mmHg O2 % BldC Oximetry 98 % BMI (Body Mass Index) 25.8 kg/m2 06/14/2019 2:57pm Height 67 inches 5'7" Weight 167.00 lb with shoes Heart Rate 58 /min BP Systolic Sitting 100 mmHg Lue reg cuff BP Diastolic Sitting 54 mmHg Lue reg cuff BP Systolic Standing 110 mmHg Lue reg cuff BP Diastolic Standing 60 mmHg Lue reg cuff Respiratory Rate 16 /min BMI (Body Mass Index) 26.2 kg/m2 Ejection Fraction 45-50% date 02/19/19 ECHO Results Test Acquired Date Facility Test Result H/L Range Note Comp Metabolic 12/09/2019 [facility] Sodium 139 mmol/L Normal 135-145 Panel [address] [place], [place] [id number] [phone] Chloride 99 mmol/L Low 101-111 Co2 Carbon [...] 8 mmol/L Normal 2-11 Laboratory test 12/09/2019 [facility] Magnesium 1.8 mg/dL Low 1.9-2.[address] [place] [address] [phone] B-Type Natriuretic Peptide BNP 221 pg/mL High <=100 Thyroid 12/09/2019 [facility] Free T4 (Free 1.09 Normal 0.61- 1.[address] Thyroxine) ng/[place] [address] [phone] Thyroxine 6.85 g/dL Normal 6.09-12.23 TSH (Thyroid [...] (or dialysis) Procedures Date Code Description Status 12/17/2019 96051 ECHO Transthoracic, Real-Time 2D With Doppler And Color Completed Flow 10/29/2019 26911 Icd Eval Sing,Dual,Multi Lead Remote Recpt Transm Tech Rev Completed Tech S 10/29/2019 46645 Icd Eval Sing,Dual,Multi Lead Remote Recpt Transm Tech Rev Completed Tech S 10/29/2019 89477 Pacemaker Check Remote Up To 90Days Single,Dual,Multiple Completed Lead 10/29/2019 90188 Pacemaker Check Remote Up To 90Days Single,Dual,Multiple Completed Lead 07/30/2019 63868 Icd Eval Sing,Dual,Multi Lead Remote Recpt Transm Tech Rev Completed Tech S 07/30/2019 62944 Icd Eval Sing,Dual,Multi Lead Remote Recpt Transm Tech Rev Completed Tech S 07/30/2019 18688 Pacemaker Check Remote Up To 90Days Single,Dual,Multiple Completed Lead 07/30/2019 80790 Pacemaker Check Remote Up To 90Days Single,Dual,Multiple Completed Lead Medical Devices Description No Information Available Encounters Description No Information Available Assessments Date Code Description Provider 12/19/2019 J44.9 Chronic obstructive pulmonary disease, Rosy Moreno MD unspecified 12/19/2019 R09.02 Hypoxemia Rosy Moreno MD 12/17/2019 I42.9 Cardiomyopathy, unspecified Traveling ECHO 2 [...] Remote Device Checks Plan of Treatment Future Appointment(s):04/28/2020 2:00 pm - Jesús Tillman MD at [facility] AT [place]99/23/2020 - Rosy Moreno MDJ44.9 Chronic obstructive pulmonary disease, unspecifiedFollow up:1 yearR09.02 Hypoxemia Functional Status Description No Information Available Mental Status Description No Information Available Referrals Description No Information Available
--- OUTSIDE RECORDS SUMMARY | 2020-02-05 18:23 | XMS REPORT | Continuity of Care Document ---
:1935 External Reference #:[id number] Author Name Gary Hilliard MD Address [address] [place] [address] Problems Active Problems Provider Date Essential hypertension [...] CPT Code Status Date Vaccine Lot # [id number] Given 12/18/2019 Flu High Dose [id number] Given 09/18/2018 Flu High Dose 32231 Given 09/18/2017 Flu High Dose Vital Signs [...] Result H/L Range Note Comp Metabolic 01/21/2020 [facility] Sodium 143 mmol/L Normal 135-[address] [place] [address] [phone] Potassium 4.1 mmol/L Normal 3.5-5.0 Chloride 103 [...] >60 Egfr 75.6 >60 1 INR/Protime 01/21/2020 [facility] INR 1.78 High 0.82-1.09 2, [address] [place] [address] [phone] Laboratory test 12/30/2019 [facility] INR 2.5 finding ( )- - Comp Metabolic 12/26/2019 [facility] Sodium 140 Normal 135- [address] mmol/[place] [address] [phone] Potassium 4.4 mmol/L Normal 3.5-5.0 Chloride 98 [...] >60 Egfr 73.3 >60 4 INR/Protime 12/16/2019 [facility] INR 2.83 High 0.82-1.[address] [place], [place] [address] [phone] CMP 12/11/2019 N2N/CCD Import Albumin QN 3.8 [...] GFR 36 GFR 44 Laboratory test 12/09/2019 [facility] B-Type 221 pg/mL High <= [address] [place] [address] Peptide BNP [phone] Comp Metabolic 12/09/2019 [facility] Sodium 139 Normal 135- [address] mmol/[place] [address] [phone] Chloride 99 mmol/L Low 101-111 Co2 Carbon [...] 8 mmol/L Normal 2-11 Laboratory test 12/09/2019 [facility] Magnesium 1.8 mg/dL Low 1.9-2.7 finding [address] [place] [address] [phone] Thyroxine 6.85 g/dL Normal 6.09-12.23 TSH (Thyroid Stim Horm) 3.53 mcIU/mL Normal 0.34-5.60 Free T4 (Free Thyroxine) 1.09 ng/dL Normal 0.61-1.12 INR/Protime 12/09/2019 [facility] INR 2.85 High 0.82-1.[address] [place] [address] [phone] INR/Protime 12/02/2019 [facility] INR 3.25 High 0.82-1.09 8 [address] [place] [address] [phone] INR/Protime 11/18/2019 [facility] INR 2.04 High 0.82-1.[address] [place] [address] [phone] INR/Protime 11/11/2019 [facility] INR 2.08 High 0.82-1.[address] [place] [address] [phone] INR/Protime 11/04/2019 [facility] INR 1.82 High 0.82-1.[address] [place] [address] [phone] INR/Protime 10/21/2019 [facility] INR 2.33 High 0.82-1.[address] [place] [address] [phone] INR/Protime 10/07/2019 [facility] INR 2.54 High 0.82-1.[address] [place] [address] [phone] INR/Protime 09/26/2019 [facility] INR 1.65 High 0.82-1.09 14 [address] [place] [address] [phone] INR/Protime 09/19/2019 [facility] INR 1.90 High 0.82-1.09 15 [address] [place] [address] [phone] Protime W/ INR 09/12/2019 [facility] INR 1.84 High 0.82-1.[address] [place] [address] [phone] Protime W/ INR 08/29/2019 [facility] INR 2.36 High 0.82-1.09 17 [address] [place] [address] [phone] Coumadin Dx 07/25/2019 N2N/CCD Import Coumadin Dx Pe INR 07/25/2019 N2N/CCD Import INR 1.45 _ - INR Goal 07/25/2019 N2N/CCD Import INR Goal 2.0 to 3.0 Recheck INR 07/25/2019 N2N/CCD Import Recheck INR 9 INR 07/24/2019 N2N/CCD Import INR 1.45 _ High 0.82-1.09 1 Because ethnic data [...] <15 (or dialysis) 2 ORDERED 8..19 EXPIRES ..20 3 Standard intensity warfarin therapeutic range: 2.0-3.0 [...] 2.5-3.5 Procedures Date Code Description Status 01/22/2020 44407 Anticoagulant MGMT For Patient Taking Warfarin, Inc Review Completed & Intr 01/09/2020 38521 Remove Impact Cerumen Irrigati Completed 12/30/2019 15856 Anticoagulant MGMT For Patient Taking Warfarin, Inc Review Completed & Intr 12/30/2019 70772 Remove Impact Cerumen Irrigati Completed 12/27/2019 42257 Remove Impact Cerumen Irrigati Completed 12/26/2019 14750 Anticoagulant MGMT For Patient Taking Warfarin, Inc Review Completed & Intr 12/26/2019 31228 Remove Impact Cerumen Irrigati Completed 12/17/2019 95635 Anticoagulant MGMT For Patient Taking Warfarin, Inc Review Completed & Intr 12/10/2019 14193 Anticoagulant MGMT For Patient Taking Warfarin, Inc Review Completed & Intr 12/03/2019 80301 Anticoagulant MGMT For Patient Taking Warfarin, Inc Review Completed & Intr 11/19/2019 71677 Anticoagulant MGMT For Patient Taking Warfarin, Inc Review Completed & Intr 11/05/2019 17277 Anticoagulant MGMT For Patient Taking Warfarin, Inc Review Completed & Intr 10/22/2019 90343 Anticoagulant MGMT For Patient Taking Warfarin, Inc Review Completed & Intr 10/08/2019 76753 Anticoagulant MGMT For Patient Taking Warfarin, Inc Review Completed & Intr 09/30/2019 43524 Anticoagulant MGMT For Patient Taking Warfarin, Inc Review Completed & Intr 09/20/2019 67453 Anticoagulant MGMT For Patient Taking Warfarin, Inc Review Completed & Intr 07/25/2019 36677 Anticoagulant MGMT For Patient Taking Warfarin, Inc [...]
--- OUTSIDE RECORDS SUMMARY | 2020-02-05 18:23 | XMS REPORT | Continuity of Care Document ---
:1935 External Reference #:[id number] Author Name Latanya Arambula MD Address [address] [place] [address] Problems Active Problems Provider Date Essential hypertension [...] CPT Code Status Date Vaccine Lot # [id number] Given 12/18/2019 Flu High Dose [id number] Given 09/18/2018 Flu High Dose 81518 Given 09/18/2017 Flu High Dose Vital Signs [...] Facility Test Result H/L Range Note INR/Protime 12/16/2019 [facility] INR 2.83 High 0.82-1.09 1, [address] [place] [address] [phone] CMP 12/11/2019 N2N/CCD Import Albumin QN 3.8 [...] 36 GFR 44 Laboratory test 12/09/2019 [facility] B-Type 221 pg/mL High <= [address] [place] [address] Peptide BNP [phone] Comp Metabolic 12/09/2019 [facility] Sodium 139 Normal 135- [address] mmol/[place] [address] [phone] Chloride 99 mmol/L Low 101-111 Co2 Carbon [...] Egfr Non- 37.3 >60 Egfr 45.2 >60 3 Potassium 6.0 mmol/L High 3.5-5.0 Anion Gap 8 mmol/L Normal 2-11 Laboratory test 12/09/2019 [facility] Magnesium 1.8 mg/dL Low 1.9-2.7 finding [address] [place] [address] [phone] Thyroxine 6.85 g/dL Normal 6.09-12.23 TSH (Thyroid Stim Horm) 3.53 mcIU/mL Normal 0.34-5.60 Free T4 (Free Thyroxine) 1.09 ng/dL Normal 0.61-1.12 INR/Protime 12/09/2019 [facility] INR 2.85 High 0.82-1.09 4 [address] [place] [address] [phone] INR/Protime 12/02/2019 [facility] INR 3.25 High 0.82-1.09 5 [address] [place] [address] [phone] INR/Protime 11/18/2019 [facility] INR 2.04 High 0.82-1.09 6 [address] [place] [address] [phone] INR/Protime 11/11/2019 [facility] INR 2.08 High 0.82-1.09 7 [address] [place] [address] [phone] INR/Protime 11/04/2019 [facility] INR 1.82 High 0.82-1.09 8 [address] [place] [address] [phone] INR/Protime 10/21/2019 [facility] INR 2.33 High 0.82-1.09 9 [address] [place] [address] [phone] INR/Protime 10/07/2019 [facility] INR 2.54 High 0.82-1.[address] [place] [address] [phone] INR/Protime 09/26/2019 [facility] INR 1.65 High 0.82-1.[address] [place] [address] [phone] INR/Protime 09/19/2019 [facility] INR 1.90 High 0.82-1.[address] [place], [place] [address] [phone] Protime W/ INR 09/12/2019 [facility] INR 1.84 High 0.82-1.[address] [place] [address] [phone] Protime W/ INR 08/29/2019 [facility] INR 2.36 High 0.82-1.[address] [place] [address] [phone] Coumadin Dx 07/25/2019 N2N/CCD Import Coumadin Dx [...] Import INR 1.70 _ High 0.82-1.09 1 ORDERED 8..19 EXPIRES 01.18.20 2 Standard intensity warfarin therapeutic range: 2.0-3.0 [...] 5 Kidney failure <15 (or dialysis) 4 Standard intensity warfarin therapeutic range: 2.0-3.0 High intensity warfarin therapeutic range: 2.5-3.5 5 Standard intensity warfarin therapeutic range: 2.0-3.0 [...] 2.5-3.5 Procedures Date Code Description Status 12/17/2019 20518 Anticoagulant MGMT For Patient Taking Warfarin, Inc Review Completed & Intr 12/10/2019 08275 Anticoagulant MGMT For Patient Taking Warfarin, Inc Review Completed & Intr 12/03/2019 23371 Anticoagulant MGMT For Patient Taking Warfarin, Inc Review Completed & Intr 11/19/2019 87971 Anticoagulant MGMT For Patient Taking Warfarin, Inc Review Completed & Intr 11/05/2019 70720 Anticoagulant MGMT For Patient Taking Warfarin, Inc Review Completed & Intr 10/22/2019 75727 Anticoagulant MGMT For Patient Taking Warfarin, Inc Review Completed & Intr 10/08/2019 52119 Anticoagulant MGMT For Patient Taking Warfarin, Inc Review Completed & Intr 09/30/2019 32143 Anticoagulant MGMT For Patient Taking Warfarin, Inc Review Completed & Intr 09/20/2019 37221 Anticoagulant MGMT For Patient Taking Warfarin, Inc Review Completed & Intr 07/25/2019 96173 Anticoagulant MGMT For Patient Taking Warfarin, Inc Review Completed & Intr 07/11/2019 46858 Anticoagulant MGMT For Patient Taking Warfarin, Inc Review Completed & Intr Medical Devices Description No Information Available Encounters Type Date Location Provider Dx Diagnosis Office Visit 12/18/2019 [facility] Latanya Arambula MD I10 Essential (primary [...]
--- OUTSIDE RECORDS SUMMARY | 2020-02-05 18:23 | XMS REPORT | Continuity of Care Document ---
:1935 External Reference #:[id number] Author Name Pepper Brewer NP (transmitted by agent of provider Erin Catalan) Address [address] [place] [id number] Care Team Providers Name Role Phone Jasmeet Bourne MD - Cardiovascular Care Team Information Equipment Sterilizer Disease Latanya Arambula M.D. - Family Care Team Information Equipment Sterilizer Medicine Problems Active Problems Provider Date Atrial fibrillation Ruthy Payan M.D. Onset: 07/15/2015 Essential hypertension Ruthy Payan M.D. Onset: 07/15/2015 Tricuspid valve disorder, non-rheumatic Ruthy Payan M.D. Onset: 07/15/2015 Chronic atrial fibrillation Ruthy Payan M.D. Onset: 05/12/2016 Chronic obstructive lung disease oRsy Moreno MD Onset: 08/30/2016 Cardiomyopathy Ruthy Payan [...] Former Cigarette Smoker Unknown Smoking Status Reviewed: 01/14/20 Former Cigarette Smoker ETOH Use Vodka 4oz per day Recreational Drug Use Denies Drug Use Tobacco Use Start: Unknown End: Patient is a former quit in 1988 Unknown smoker Exercise Type/Frequency Exercises regularly 5 days/week at gym Allergies, Adverse Reactions, Alerts Active Allergies Reaction Severity Comments Date Rythmol dizziness Moderate 08/29/2012 Metoprolol Succinate 08/01/2018 Medications Active Medications SIG Qnty Indications Ordering Date Provider Lisinopril 1 by mouth every 90tabs I42.9 Pepper Brewer, 01/14/2020 2.5mg day ANALYSIS MGR Tablets Furosemide 1/2 tablet by 60tabs Pepper Brewer, 10/15/2018 20mg Tablets mouth daily ANALYSIS MGR Pulse Oximeter use as instructed 1units R09.02 [facility] [place], 06/13/2017 Misc MD Oxygen please use o2 at 1units [facility] [place], 06/07/2017 Misc 1L/min during MD exertion Multivitamins 1 tablet po daily Unknown Simvastatin 1 by mouth every 90tabs Ruthy Payan, 20mg day M.D. Tablets Warfarin 2 tablet for 3 Unknown 2mg Tablets days and 1 tablet 4 days as directed ( adjustment Dr. Maharaj) Timolol Maleate 1 drop per eye 3 Unknown 0.25% times a day Solution Pilocarpine HCL 1 gtt in both eyes Unknown 1% 1 x month Solution Medications Administered in Office Medication SIG Qnty Indications Ordering Provider Date Inj, Regadenoson, 0.1 MG Deep Edgar M.D., 07/21/2015 Injection CLARA LOVENC Inj, Regadenoson, 0.1 MG Ruthy Payan M.D. 07/21/2015 Injection Technetium TC 99M Deep Edgar M.D., 07/21/2015 Tetrofosmin, Per Unit Dose GERONIMO LOVE Up To 40 Millicuries Injection Technetium TC 99M Ruthy Payan M.D. 07/21/2015 Tetrofosmin, Per Unit Dose Up To 40 Millicuries Injection Immunizations CPT Code Status Date Vaccine Lot # [id number] Given 08/30/2016 Influenza Virus Vaccine, Quadrivalent, Split, [id number] Preservative Free Vital Signs Date Vital Result Comment 01/14/2020 2:30pm Height 67 inches 5'7" Weight 173.00 lb with shoes Heart Rate 74 /min BP Systolic Sitting 110 mmHg Lue reg cuff BP Diastolic Sitting 70 mmHg Lue reg cuff BP Systolic Standing 116 mmHg Lue reg cuff BP Diastolic Standing 74 mmHg Lue reg cuff Respiratory Rate 15 /min BMI (Body Mass Index) 27.1 kg/m2 Ejection Fraction 45-50% date 12/17/19 ECHO 12/30/2019 1:32pm Height 67 inches 5'7" Weight 168.00 lb with shoes Heart Rate 61 /min BP Systolic Sitting 104 mmHg Ra BP Diastolic Sitting 66 mmHg Ra BP Systolic Standing 104 mmHg Ra BP Diastolic Standing 76 mmHg Ra BMI (Body Mass Index) 26.3 kg/m2 Ejection Fraction 45-50% Echo 12/17/2019 Results Test Acquired Date Facility Test Result H/L Range Note Order 01/07/2020 [facility] Holter <pending> [address] [place] [address] [phone] Comp Metabolic 12/09/2019 [facility] Sodium 139 mmol/L Normal 135-[address] [place] [address] [phone] Chloride 99 mmol/L Low 101-111 Co2 Carbon [...] 8 mmol/L Normal 2-11 Laboratory test 12/09/2019 [facility] Magnesium 1.8 mg/dL Low 1.9-2.[address] [place] [address] [phone] B-Type Natriuretic Peptide BNP 221 pg/mL High <=100 Thyroid 12/09/2019 [facility] Free T4 (Free 1.09 Normal 0.61- 1.[address] Thyroxine) ng/[place] [address] [phone] Thyroxine 6.85 g/dL Normal 6.09-12.23 TSH (Thyroid [...] (or dialysis) Procedures Date Code Description Status 01/07/2020 39416 Holter Monitor Review (24 hr)dr zelaya & interp only Completed 01/07/2020 38955 ECG Monitor/Recording W/Visual Superimposition Scanning Completed 12/30/2019 59408 EKG Tracing & Interpretation Completed 12/17/2019 94077 ECHO Transthoracic, Real-Time 2D With Doppler And Color Completed Flow 10/29/2019 12588 Icd Eval Sing,Dual,Multi Lead Remote Recpt Transm Tech Rev Completed [employer] [facility] 10/29/2019 93579 Icd Eval Sing,Dual,Multi Lead Remote Recpt Transm Tech Rev Completed [employer] [facility] 10/29/2019 50998 Pacemaker Check Remote Up To 90Days Single,Dual,Multiple Completed Lead 10/29/2019 82724 Pacemaker Check Remote Up To 90Days Single,Dual,Multiple Completed Lead 07/30/2019 50122 Icd Eval Sing,Dual,Multi Lead Remote Recpt Transm Tech Rev Completed Tech S 07/30/2019 15460 Icd Eval Sing,Dual,Multi Lead Remote Recpt Transm Tech Rev Completed Tech S 07/30/2019 09026 Pacemaker Check Remote Up To 90Days Single,Dual,Multiple Completed Lead 07/30/2019 23722 Pacemaker Check Remote Up To 90Days Single,Dual,Multiple Completed Lead Medical Devices Description No Information Available Encounters Type Date Location Provider Dx Diagnosis Office Visit 12/30/2019 [facility] Pepper Thuman, I49.3 Ventricular premature 2:00p Of Theology Teacher ANALYSIS MGR depolarization I42.9 Cardiomyopathy, unspecified I48.21 Permanent atrial fibrillation Z95.0 Presence of cardiac pacemaker Office Visit 12/19/2019 1:45p Pulmonology And [facility] Tiffanie obstructive Theology Teacher pulmonary disease, unspecified R09.02 Hypoxemia Assessments Date Code Description Provider 01/14/2020 I42.9 Cardiomyopathy, unspecified Pepper Thuman, ANALYSIS MGR 01/14/2020 I48.91 Unspecified atrial fibrillation Pepper Thuman, ANALYSIS MGR 01/14/2020 I49.3 Ventricular premature depolarization Pepper Thuman, ANALYSIS MGR 01/14/2020 Z95.0 Presence of cardiac pacemaker Pepper Thuman, ANALYSIS MGR 01/07/2020 I49.3 Ventricular premature depolarization Nurse Visit [facility] 12/30/2019 I48.91 Unspecified atrial fibrillation Ruthy Payan M.D. 12/30/2019 I49.3 Ventricular premature depolarization Pepper Thuman, ANALYSIS MGR 12/30/2019 I42.9 Cardiomyopathy, unspecified Pepper Thuman, ANALYSIS MGR 12/30/2019 I48.21 Permanent atrial fibrillation Pepper Thuman, ANALYSIS MGR 12/30/2019 Z95.0 Presence of cardiac pacemaker Pepper Thuman, ANALYSIS MGR 12/19/2019 J44.9 Chronic obstructive pulmonary disease, Rosy [...] Remote Device Checks Plan of Treatment Future Appointment(s):04/27/2020 3:20 pm - Ruthy Payan M.D. at [facility]12/21/2020 3:00 pm - Tiera Ruffin NP at [facility]04/28/2020 2:00 pm - Jesús Tillman MD at [facility] Dermatology AT [place]55/18/2020 - Pepper Brewer NPI42.9 Cardiomyopathy, unspecifiedNew Medication:Lisinopril 2.5 mg - 1 by mouth every dayFollow up: follow up in 3-[address] Myersommendations:get non fasting labs next week so I can re evaluate your potassium level now that you are back on XycltkejdpS16.91 Unspecified atrial nqoiyngudwqrO29.3 Ventricular premature egkwxsxexevdmvV71.0 Presence of cardiac pacemaker Functional Status Description No Information Available Mental Status Description No Information Available Referrals Description No Information Available
--- OUTSIDE RECORDS SUMMARY | 2020-02-05 18:23 | XMS REPORT | Continuity of Care Document ---
:1935 External Reference #:[id number] Author Name Latanya Arambula MD Address [address] [place] [address] Problems Active Problems Provider Date Essential hypertension [...] smoker quit in 1988 Smoking Status Reviewed: 12/18/19 Patient is a former smoker quit in 1988 Allergies, Adverse Reactions, Alerts Active Allergies Reaction Severity Comments Date Diltiazem leg edema, malaise. Moderate 08/02/2019 Metoprolol wheezing, exacerbated COPD Moderate 08/02/2019 Rhythmol dizziness Moderate 08/02/2019 Medications Active Medications SIG Qnty Indications Ordering Date Provider Simvastatin 1 daily Oral 90tabs Unknown 05/21/2019 20mg Tablets Aldactone 1 daily Oral 30tabs Unknown 02/02/2019 25mg Tablets Warfarin Sodium Oral; Take 1 90tabs Unknown 12/30/2018 2.5mg Tablet By Mouth Tablets Every Day as Directed Furosemide 2 by mouth M W F 1 30tabs Unknown 09/18/2018 20mg by mouth T TH Sat Tablets Sun Lisinopril 1 daily Oral 90tabs Unknown 09/18/2018 10mg Tablets Warfarin Sodium Oral; Take 1 90tabs Unknown 04/16/2018 2mg Tablet By Mouth Tablets Every Day Warfarin Sodium 2-3 daily Oral 90tabs Unknown 01/12/2018 1mg Tablets Pilocarpine HCL 1 drop 4 times a 15units Unknown 09/18/2017 1% day Ophthalmic Solution Timolol Maleate 1 Ophthalmic; Unknown 09/18/2017 Ophthalmic Gel both eyes every 12 Forming hours. 0.25% GFS Immunizations CPT Code Status Date Vaccine Lot # [id number] Given 12/18/2019 Flu High Dose [id number] Given 09/18/2018 Flu High Dose 01709 Given 09/18/2017 Flu High Dose Vital Signs Date Vital Result Comment 12/18/2019 3:06pm BP Systolic 116 mmHg BP Diastolic 66 mmHg Heart Rate 69 /min Body Temperature 98.2 F O2 % BldC Oximetry 98 % 01/23/2019 11:16am BP Systolic 144 mmHg Heart Rate 68 /min O2 % BldC Oximetry 92 % Results Test Acquired Date Facility Test Result H/L Range Note INR/Protime 12/16/2019 [facility] INR 2.83 High 0.82-1.09 1, [address] [place] [address] [phone] CMP 12/11/2019 N2N/CCD Import Albumin QN 3.8 [...] GFR 36 GFR 44 Laboratory test 12/09/2019 [facility] B-Type 221 pg/mL High <= [address] [place] [address] Peptide BNP [phone] Comp Metabolic 12/09/2019 [facility] Sodium 139 Normal 135- [address] mmol/[place] [address] [phone] Chloride 99 mmol/L Low 101-111 Co2 Carbon [...] 2-11 Laboratory test 12/09/2019 [facility] Magnesium 1.8 mg/dL Low 1.9-2.7 finding [address] [place] [address] [phone] Thyroxine 6.85 g/dL Normal 6.09-12.23 TSH (Thyroid Stim Horm) 3.53 mcIU/mL Normal 0.34-5.60 Free T4 (Free Thyroxine) 1.09 ng/dL Normal 0.61-1.12 INR/Protime 12/09/2019 [facility] INR 2.85 High 0.82-1.[address] [place] [address] [phone] INR/Protime 12/02/2019 [facility] INR 3.25 High 0.82-1.09 5 [address] [place] [address] [phone] INR/Protime 11/18/2019 [facility] INR 2.04 High 0.82-1.09 6 [address] [place] [address] [phone] INR/Protime 11/11/2019 [facility] INR 2.08 High 0.82-1.[address] [place] [address] [phone] INR/Protime 11/04/2019 [facility] INR 1.82 High 0.82-1.09 8 [address] [place] [address] [phone] INR/Protime 10/21/2019 [facility] INR 2.33 High 0.82-1.09 9 [address] [place] [address] [phone] INR/Protime 10/07/2019 [facility] INR 2.54 High 0.82-1.[address] [place], [place] [id number] [phone] INR/Protime 09/26/2019 [facility] INR 1.65 High 0.82-1.[address] [place], [place] [address] [phone] INR/Protime 09/19/2019 [facility] INR 1.90 High 0.82-1.[address] [place], [place] [address] [phone] Protime W/ INR 09/12/2019 [facility] INR 1.84 High 0.82-1.[address] [place] [address] [phone] Protime W/ INR 08/29/2019 [facility] INR 2.36 High 0.82-1.[address] [place], [place] [id number] [phone] Coumadin Dx 07/25/2019 N2N/CCD Import Coumadin Dx [...] _ High 0.82-1.09 1 ORDERED 8..19 EXPIRES 01.18. 2 Standard intensity warfarin therapeutic range: 2.0-3.0 [...] 2.5-3.5 Procedures Date Code Description Status 12/17/2019 99825 Anticoagulant MGMT For Patient Taking Warfarin, Inc Review Completed & Intr 12/10/2019 91312 Anticoagulant MGMT For Patient Taking Warfarin, Inc Review Completed & Intr 12/03/2019 04867 Anticoagulant MGMT For Patient Taking Warfarin, Inc Review Completed & Intr 11/19/2019 38652 Anticoagulant MGMT For Patient Taking Warfarin, Inc Review Completed & Intr 11/05/2019 66911 Anticoagulant MGMT For Patient Taking Warfarin, Inc Review Completed & Intr 10/22/2019 81839 Anticoagulant MGMT For Patient Taking Warfarin, Inc Review Completed & Intr 10/08/2019 10138 Anticoagulant MGMT For Patient Taking Warfarin, Inc Review Completed & Intr 09/30/2019 18349 Anticoagulant MGMT For Patient Taking Warfarin, Inc Review Completed & Intr 09/20/2019 87522 Anticoagulant MGMT For Patient Taking Warfarin, Inc Review Completed & Intr 07/25/2019 62377 Anticoagulant MGMT For Patient Taking Warfarin, Inc Review Completed & Intr 07/11/2019 10424 Anticoagulant MGMT For Patient Taking Warfarin, Inc Review Completed & Intr Medical Devices Description No Information Available Encounters Type Date Location Provider Dx Diagnosis Office Visit 12/18/2019 [facility] Latanya Arambula MD I10 Essential (primary ) 3:00p hypertension J30.89 Other allergic rhinitis Assessments Date Code Description Provider 12/18/2019 I10 Essential (primary) hypertension Latanya Arambula MD 12/18/2019 J30.89 Other allergic rhinitis Latanya Arambula MD 11/19/2019 I48.19 Other persistent atrial fibrillation Gary Hilliard MD Plan of Treatment No Information Available Functional Status Description No Information Available Mental Status Description No Information Available Referrals Description No Information Available
== END 2020-02-05 18:20 | disposition home or self-care (01) ==
LOC: UCCORT 15:37
DX: S61.411A Laceration without foreign body of right hand, initial encounter (principal); S60.122A Contusion of left index finger with damage to nail, initial encounter; W22.01XA Walked into wall, initial encounter; Y92.9 Unspecified place or not applicable; Z88.8 Allergy status to other drugs, medicaments and biological substances; Z79.01 Long term (current) use of anticoagulants; Z87.891 Personal history of nicotine dependence; Z95.0 Presence of cardiac pacemaker
CPT/HCPCS: 99211; G0463

== ENCOUNTER 2020-02-07 15:02 | Emergency (ER) | payer MEDICARE, BC ==
--- OUTSIDE RECORDS SUMMARY | 2020-02-07 15:19 | XMS REPORT | Continuity of Care Document ---
:1935 External Reference #:[id number] Author Name Gary Hilliard MD (transmitted by agent of provider [facility]) Address [address] [place] [id number] Problems Active Problems Provider Date Essential hypertension [...] CPT Code Status Date Vaccine Lot # [id number] Given 12/18/2019 Flu High Dose [id number] Given 09/18/2018 Flu High Dose 69830 Given 09/18/2017 Flu High Dose Vital Signs [...] Test Result H/L Range Note INR/Protime 02/04/2020 [facility] INR 2.38 High 0.82-1.09 1, 2 [address] [place] [address] [phone] Comp Metabolic 01/28/2020 [facility] Sodium 143 mmol/L Normal 135-145 Panel [address] [place], [place] [id number] [phone] Potassium 4.1 mmol/L Normal 3.5-5.0 Chloride 102 [...] Egfr 82.3 >60 3 Comp Metabolic 01/21/2020 [facility] Sodium 143 mmol/L Normal 135-145 Panel [address] [place], [place] [address] [phone] Potassium 4.1 mmol/L Normal 3.5-5.0 Chloride 103 [...] >60 Egfr 75.6 >60 4 INR/Protime 01/21/2020 [facility] INR 1.78 High 0.82-1.[address] [place] [address] [phone] Laboratory test 12/30/2019 [facility] INR 2.5 finding ( )- - Comp Metabolic 12/26/2019 [facility] Sodium 140 mmol/L Normal 135-145 Panel [address] [place] [address] [phone] Potassium 4.4 mmol/L Normal 3.5-5.0 Chloride 98 [...] >60 Egfr 73.3 >60 6 INR/Protime 12/16/2019 [facility] INR 2.83 High 0.82-1.09 7 [address] [place] [address] [phone] CMP 12/11/2019 N2N/CCD Import Albumin QN 3.8 [...] 0.7 GFR 36 GFR 44 INR/Protime 12/09/2019 [facility] INR 2.85 High 0.82-1.09 8 [address] [place] [address] [phone] Laboratory test 12/09/2019 [facility] Magnesium 1.8 mg/dL Low 1.9-2.7 finding [address] [place] [address] [phone] Thyroxine 6.85 g/dL Normal 6.09-12.23 TSH (Thyroid Stim Horm) 3.53 mcIU/mL Normal 0.34-5.60 Free T4 (Free Thyroxine) 1.09 ng/dL Normal 0.61-1.12 Comp Metabolic 12/09/2019 [facility] Sodium 139 mmol/L Normal 135-145 Panel [address] [place] [address] [phone] Chloride 99 mmol/L Low 101-111 Co2 Carbon [...] 8 mmol/L Normal 2-11 Laboratory test 12/09/2019 [facility] B-Type 221 pg/mL High <= [address] [place] [address] Peptide BNP [phone] INR/Protime 12/02/2019 [facility] INR 3.25 High 0.82-1.[address] [place] [address] [phone] INR/Protime 11/18/2019 [facility] INR 2.04 High 0.82-1.[address] [place] [address] [phone] INR/Protime 11/11/2019 [facility] INR 2.08 High 0.82-1.[address] [place] [address] [phone] INR/Protime 11/04/2019 [facility] INR 1.82 High 0.82-1.[address] [place] [address] [phone] INR/Protime 10/21/2019 [facility] INR 2.33 High 0.82-1.[address] [place] [address] [phone] INR/Protime 10/07/2019 [facility] INR 2.54 High 0.82-1.[address] [place] [address] [phone] INR/Protime 09/26/2019 [facility] INR 1.65 High 0.82-1.[address] [place] [address] [phone] INR/Protime 09/19/2019 [facility] INR 1.90 High 0.82-1.[address] [place] [address] [phone] Protime W/ INR 09/12/2019 [facility] INR 1.84 High 0.82-1.[address] [place] [address] [phone] Protime W/ INR 08/29/2019 [facility] INR 2.36 High 0.82-1.[address] [place] [address] [phone] 1 ORDERED 8.22.19 EXPIRES 2.22.20 2 Standard [...] range: 2.5-3.5 Procedures Date Code Description Status 02/05/2020 05439 Anticoagulant MGMT For Patient Taking Warfarin, Inc Review Completed & Intr 01/22/2020 48436 Anticoagulant MGMT For Patient Taking Warfarin, Inc Review Completed & Intr 01/09/2020 76461 Remove Impact Cerumen Irrigati Completed 12/30/2019 62836 Anticoagulant MGMT For Patient Taking Warfarin, Inc Review Completed & Intr 12/30/2019 19598 Remove Impact Cerumen Irrigati Completed 12/27/2019 21031 Remove Impact Cerumen Irrigati Completed 12/26/2019 44863 Anticoagulant MGMT For Patient Taking Warfarin, Inc Review Completed & Intr 12/26/2019 10280 Remove Impact Cerumen Irrigati Completed 12/17/2019 64375 Anticoagulant MGMT For Patient Taking Warfarin, Inc Review Completed & Intr 12/10/2019 63528 Anticoagulant MGMT For Patient Taking Warfarin, Inc Review Completed & Intr 12/03/2019 10772 Anticoagulant MGMT For Patient Taking Warfarin, Inc Review Completed & Intr 11/19/2019 23441 Anticoagulant MGMT For Patient Taking Warfarin, Inc Review Completed & Intr 11/05/2019 06339 Anticoagulant MGMT For Patient Taking Warfarin, Inc Review Completed & Intr 10/22/2019 01356 Anticoagulant MGMT For Patient Taking Warfarin, Inc Review Completed & Intr 10/08/2019 93846 Anticoagulant MGMT For Patient Taking Warfarin, Inc Review Completed & Intr 09/30/2019 05056 Anticoagulant MGMT For Patient Taking Warfarin, Inc Review Completed & Intr 09/20/2019 70852 Anticoagulant MGMT For Patient Taking Warfarin, Inc Review Completed & Intr Medical Devices Description No Information Available Encounters Type Date Location Provider Dx Diagnosis Office Visit 12/26/2019 [facility] Latanya Arambula MD H61.23 Impacted cerumen, 3:45p bilateral Office Visit 12/18/2019 [facility] Latanya Arambula MD I10 Essential (primary ) 3:00p hypertension J30.89 Other allergic rhinitis Z23 Encounter for immunization Assessments Date Code Description Provider 01/22/2020 I48.19 Other persistent atrial fibrillation Gary Hilliard MD 12/30/2019 I48.19 Other persistent atrial fibrillation Nurse [...]
[2020-02-07 15:58] VITALS: BP 133/68
--- NOTE | 2020-02-07 16:11 | UC ---
Upper Extremity HPI - HPI Summary HPI Summary: per dairy nutrition specialist: "Pt here 2 days ago for R hand injury, reports the hand is more painful, red, swollen, and painful than when he was here 2 days ago. Pt has been applying topical abx ointment but reports "it looked puffy"." - History of Current Complaint Chief Complaint: UCUpperExtremity Stated Complaint: RE-CK RIGHT HAND COMPLAINT Time Seen by Provider: 02/07/20 16:05 Pain Intensity: 0 - Allergies/Home Medications Allergies/Adverse Reactions: Allergies Allergy/AdvReac Type Severity Reaction Status Date / Time propafenone Allergy Dizziness Verified 02/07/20 15:53 Home Medications: Home Medications Multivitamin [Multivitamins] 1 tab PO QPM 06/12/13 [History Confirmed 02/07/20] Timolol 0.25% OPHTH.SOLN* [Timoptic Ophth.soln 0.25%*] 1 drop BOTH EYES BID [History Confirmed 02/07/20] Warfarin TAB(*) [Coumadin TAB(*)] 2 mg PO DAILY 05/16/14 [History Confirmed ] Furosemide TAB* [Lasix TAB*] 2 tab PO DAILY 07/28/15 [History Confirmed 02/07/20 ] Simvastatin 20 mg PO QAM 06/07/18 [History Confirmed 02/07/20] Oxygen 2 % BEDTIME 01/19/19 [History Confirmed 02/07/20] Pilocarpine 4% OPTH.TAE* 1 drop .SEE ORDER MONTHLY 01/19/19 [History Confirmed 02/07/20] lisinopriL [Lisinopril 2.5 MG-] 0.5 tab PO DAILY 02/05/20 [History Confirmed ] PMH/Surg Hx/FS Hx/Imm Hx - Surgical History Surgical History: Yes Surgery Procedure, Year, and Place: 2012-Right MENISCUS REPAIR-2012. 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 kidney stone removal. PACEMAKER INSERTION - Family History Known Family History: Positive: Cardiac Disease, Hypertension - Social History Alcohol Use: Daily Alcohol Amount: cocktail x1 nightly Substance Use Type: None Smoking Status (MU): Former Smoker Length of Time of Smoking/Using Tobacco: 1-2 PPD x 25 Years Have You Smoked in the Last Year: No When Did the Patient Quit Smoking/Using Tobacco: 1984 - Immunization History Most Recent Tetanus Shot: UNKNOWN Physical Exam Vital Signs: Initial Vital Signs Temp 97.8 F 02/07/20 15:53 Pulse 60 02/07/20 15:53 Resp 16 02/07/20 15:53 BP 133/68 02/07/20 15:53 Pulse Ox 95 02/07/20 15:53 Discharge ED - Discharge Plan Referrals: Latanya Arambula MD [Primary Care Provider] -
--- NOTE | 2020-02-07 16:22 | UC ---
Skin Complaint HPI - HPI Summary HPI Summary: per accounting/finance tutor: "Pt here 2 days ago for R hand injury, reports the hand is more painful, red, swollen, and painful than when he was here 2 days ago. Pt has been applying topical abx ointment but reports "it looked puffy"." -reviewed note from earlier this week. -open wound extensor hand. there was yellow clear discharge from it when uncovered this monring and concerned -has kept it open all day an dhas not ahd any more drainage. - is concerned bc of the appearance of the open wound/flesh and yellowish coloration and scabbing occuring -bleeding is controlled. -no fevers/chills. - History of Current Complaint Chief Complaint: UCUpperExtremity Time Seen by Provider: 02/07/20 16:05 Stated Complaint: RE-CK RIGHT HAND COMPLAINT Pain Intensity: 0 - Allergy/Home Medications Allergies/Adverse Reactions: Allergies Allergy/AdvReac Type Severity Reaction Status Date / Time propafenone Allergy Dizziness Verified 02/07/20 15:53 Home Medications: Home Medications Multivitamin [Multivitamins] 1 tab PO QPM 06/12/13 [History Confirmed 02/07/20] Timolol 0.25% OPHTH.SOLN* [Timoptic Ophth.soln 0.25%*] 1 drop BOTH EYES BID [History Confirmed 02/07/20] Warfarin TAB(*) [Coumadin TAB(*)] 2 mg PO DAILY 05/16/14 [History Confirmed ] Furosemide TAB* [Lasix TAB*] 2 tab PO DAILY 07/28/15 [History Confirmed 02/07/20 ] Simvastatin 20 mg PO QAM 06/07/18 [History Confirmed 02/07/20] Oxygen 2 % BEDTIME 01/19/19 [History Confirmed 02/07/20] Pilocarpine 4% OPTH.TAE* 1 drop .SEE ORDER MONTHLY 01/19/19 [History Confirmed 02/07/20] lisinopriL [Lisinopril 2.5 MG-] 0.5 tab PO DAILY 02/05/20 [History Confirmed ] PMH/Surg Hx/FS Hx/Imm Hx Previously Healthy: Yes Cardiovascular History: Hypertension, Pacemaker/ICD, Atrial Fibrillation - Surgical History Surgical History: Yes Surgery Procedure, Year, and Place: 2012-Right MENISCUS REPAIR-2012 [place]. 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 kidney stone removal. PACEMAKER INSERTION - Family History Known Family History: Positive: Cardiac Disease, Hypertension - Social History Alcohol Use: Daily Alcohol Amount: cocktail x1 nightly Substance Use Type: None Smoking Status (MU): Former Smoker Length of Time of Smoking/Using Tobacco: 1-2 PPD x 25 Years Have You Smoked in the Last Year: No When Did the Patient Quit Smoking/Using Tobacco: 1984 - Immunization History Most Recent Tetanus Shot: UNKNOWN Review of Systems All Other Systems Reviewed And Are Negative: Yes Constitutional: Positive: Negative. Negative: Fever, Chills Skin: Positive: Other - see above Eyes: Positive: Negative ENT: Positive: Negative Respiratory: Positive: Negative. Negative: Cough Cardiovascular: Positive: Negative Gastrointestinal: Positive: Negative Genitourinary: Positive: Negative Motor: Positive: Negative Neurovascular: Positive: Negative Musculoskeletal: Positive: Negative Neurological/Mental Status: Positive: Negative Psychological: Positive: Negative Is Patient Immunocompromised?: No Physical Exam Triage Information Reviewed: Yes Appearance: Well-Appearing, No Pain Distress, Well-Nourished Vital Signs: Initial Vital Signs Temp 97.8 F 02/07/20 15:53 Pulse 60 02/07/20 15:53 Resp 16 02/07/20 15:53 BP 133/68 02/07/20 15:53 Pulse Ox 95 02/07/20 15:53 Vital Signs Reviewed: Yes Eye Exam: Normal ENT Exam: Normal ENT: Positive: Pharynx normal. Negative: Nasal congestion Neck exam: Normal Respiratory Exam: Normal Cardiovascular Exam: Normal Musculoskeletal Exam: Normal Neurological Exam: Normal Psychological Exam: Normal Skin: Positive: Other - rt extensor hand w/ ~ 3 cm open wound that is healing nicely w/ good granultaion tissue. there is mild swelling in extensor right hand Course/Dx - Course Course Of Treatment: rt hand wound, several days old. appears irritated. wound is healing nicely w/ good granulation tissue. no fevers, no discharge seen. cool to touch. no bactreial infection at this time. - Differential Diagnoses - Skin Complaint Differential Diagnoses: Cellulitis, Contact Dermatitis, Other - wound - Diagnoses Provider Diagnosis: Laceration Discharge ED - Sign-Out/Discharge Documenting (check all that apply): Patient Departure All imaging exams completed and their final reports reviewed: No Studies - Discharge Plan Condition: Stable Disposition: HOME Patient Education Materials: Acute Wound Care (ED) Referrals: Latanya Arambula MD [Primary Care Provider] - 3 Days Additional Instructions: You wound does not look infected at this time. It appears irritated, but the wound itself is healing nicely. Contineu with antibiotic ointment but recommend covering. Please be re-evaluated sooner with fevers/chills or worsening redness or swelling as a bacterial infection may occur. It is not recommended to take an antibiotic to prevent an infection. - Billing Disposition and Condition Condition: STABLE Disposition: Home
== END 2020-02-07 16:51 | disposition home or self-care (01) ==
LOC: UCCORT 15:02
DX: S61.411D Laceration without foreign body of right hand, subsequent encounter (principal); I10 Essential (primary) hypertension; I48.91 Unspecified atrial fibrillation; Z95.0 Presence of cardiac pacemaker; Z79.899 Other long term (current) drug therapy; X58.XXXD Exposure to other specified factors, subsequent encounter; Z87.891 Personal history of nicotine dependence
CPT/HCPCS: 99211; G0463